=== PATIENT | male | born 1940 | race Caucasian/White ===

== ENCOUNTER 2018-04-10 09:59 | Day surgery (SDC) | payer MEDICARE, OTHER ==
[2018-04-07 08:57] VITALS: BMI 31.0
[~2018-04-10 09:59] MED LIST: LACTATED RINGERS 1,000 ML IV SCH
[2018-04-10 10:26] VITALS: RESP 16; TEMP 99.3
[2018-04-10] MEDS ORDERED: LIDOCAINE 1% 20 ML VIAL (10MG/ML) FOR IV START INTRADERMA ONE (10:29)
[2018-04-10] MEDS ORDERED: PROPOFOL 10 MG/ML 20 ML VIAL IV ONE (10:56)
[2018-04-10] MEDS ORDERED: LIDOCAINE 1% INJ 10MG/ML (20 ML MDV) ONE (10:56)
--- NOTE | 2018-04-10 10:59 | P.GSHP ---
History of Present Illness H&P Date: 04/10/18 Chief Complaint: Constipation This a 77-year-old male referred from Dr. Hari Alvarez. Patient has had change in bowel habits with increasing constipation. He presents today for colonoscopy. Past Medical History Past Medical History: Hyperlipidemia, Hypertension, Prostate Disorder, Skin Disorder Additional Past Medical History / Comment(s): BPH. PSORIASIS. History of Any Multi-Drug Resistant Organisms: None Reported Past Surgical History: Appendectomy, Joint Replacement, Orthopedic Surgery Additional Past Surgical History / Comment(s): COLONOSCOPY. TOTAL RT HIP. Arthroscopy Knee Past Anesthesia/Blood Transfusion Reactions: No Reported Reaction Smoking Status: Former smoker - Past Family History Mother Daughter(s) Family Medical History: Cancer Medications and Allergies Home Medications Medication Instructions Recorded Confirmed Type Aspirin 81 mg PO DAILY 03/26/16 04/10/18 History Multivit-Min/FA/Lycopen/Lutein 1 each PO DAILY 03/26/16 04/10/18 History [Centrum Silver Tablet] Simvastatin [Zocor] 40 mg PO HS 03/26/16 04/10/18 History amLODIPine BESYLATE [Norvasc] 20 mg PO DAILY 04/07/18 04/10/18 History Allergies Allergy/AdvReac Type Severity Reaction Status Date / Time No Known Allergies Allergy Verified 04/10/18 10:24 Surgical - Exam Vital Signs Temp Pulse Resp BP Pulse Ox 99.3 F 76 16 160/73 97 04/10/18 10:12 04/10/18 10:12 04/10/18 10:12 04/10/18 10:12 04/10/18 10:12 - General well developed - Eyes PERRL - ENT normal pinna - Neck no masses - Respiratory normal expansion - Abdomen Abdomen: soft, non tender Assessment and Plan Assessment: Constipation, we'll perform colonoscopy.
--- NOTE | 2018-04-10 11:11 | P.OP ---
Date of Procedure: 04/10/18 Preoperative Diagnosis: Constipation Postoperative Diagnosis: Diverticulosis Procedure(s) Performed: Colonoscopy Anesthesia: MAC Surgeon: Russell Peralta Pathology: none sent Condition: stable Disposition: PACU Description of Procedure: PROCEDURE: The patient was placed on the endoscopy table in the lateral position. Digital rectal examination was performed which revealed no abnormalities. The prostate was symmetrical without nodules. Flexible colonoscope was then placed in the patient's anus and passed throughout the entire colon. The ileocecal valve was visualized. The cecum, ascending, transverse, descending and sigmoid colon were normal. The rectum was normal as well. There were no masses, polyps or diverticula noted in the entire colon. SUMMARY OF FINDINGS: Normal colonoscopy.
[2018-04-10 11:25] VITALS: BP 116/72
[2018-04-10 11:49] VITALS: PULSE 53
--- NOTE | 2018-04-12 14:35 | CDI ---
Date: 04/12/18 CDS/Pool Manager Name: Carmen Miranda Phone: If any questions, call Mary Gloria Postdoctoral Scientist at [phone] Patient Name: Sukhdev Ordonez Admit Date: 04/10/18 Discharge Date: 04/10/18 ATTENTION: The [facility] Coding Staff appreciate your assistance in clarifying documentation. Please respond to the clarification below the line at the bottom and electronically sign. The [facility] Coding staff will review the response and follow-up if needed. Please note: Queries are made part of the Legal Health Record. If you have any questions, please contact the Postdoctoral Scientist. Dear Dr. Peralta, Please provide clarification as to the diagnosis of diverticulosis. On the operative report under Postoperative diagnosis is listed diverticulosis. In the body of the report the last sentence states: "There were no masses, polyps or diverticula noted in the entire colon" Please provide clarification. Thank you for your kind consideration. MTDD
== END 2018-04-10 11:58 | disposition home or self-care (01) ==
LOC: ORWHC2ENDO 09:59
PROVIDERS: ATTEND Surgery
DX: K57.30 Diverticulosis of large intestine without perforation or abscess without bleeding (principal); K59.00 Constipation, unspecified; I10 Essential (primary) hypertension; N40.0 Benign prostatic hyperplasia without lower urinary tract symptoms; L40.9 Psoriasis, unspecified; Z87.891 Personal history of nicotine dependence; Z79.82 Long term (current) use of aspirin; Z79.899 Other long term (current) drug therapy; E78.5 Hyperlipidemia, unspecified
CPT/HCPCS: 45378; J2001; J2704

== ENCOUNTER → 2021-01-06 | Outpatient (CLI) | payer MEDICARE, OTHER ==
--- NOTE | 2021-01-07 00:54 | MR ---
EXAMINATION TYPE: MR knee RT wo con DATE OF EXAM: 01/06/2021 COMPARISON: None HISTORY: Pain in right knee Multiplanar multiecho imaging of the right knee was performed without contrast. The anterior and posterior cruciate ligaments appear intact. There is a large oblique tear of the pos terior horn medial meniscus extending to the inferior surface. Anterior horn of the medial meniscus a ppears intact. There is oblique tear of the posterior horn lateral meniscus extending to the inferior surface. There is also horizontal tear of the anterior horn of the lateral meniscus. There is a mild knee joint eff usion. There is subcutaneous edema anterior to the patella and the patellar tendon. There are small a reas of increased signal in the subchondral patella consistent with minimal bone bruise. There is mil d increased signal on the medial aspect medial tibial condyle that measures 2 cm consistent with a angel ne bruise. The collateral ligaments appear intact. There is 5 mm area of subchondral edema in the ant erior aspect of the lateral femoral condyle. IMPRESSION: Knee joint effusion. There is moderate-sized tears of the anterior posterior horns of the lateral men iscus in the posterior horn of the medial meniscus. No evidence of ligamentous tear. Subcutaneous jazz ma over the anterior knee. No fracture seen. There is evidence of a moderate bone bruise involving th e anterior aspect medial tibial condyle.
== END | disposition home or self-care (01) ==
LOC: RADMRIMAIN 10:48
PROVIDERS: ATTEND Orthopaedic Surgery
DX: M23.341 Other meniscus derangements, anterior horn of lateral meniscus, right knee (principal); M23.351 Other meniscus derangements, posterior horn of lateral meniscus, right knee; M23.321 Other meniscus derangements, posterior horn of medial meniscus, right knee; S80.11XA Contusion of right lower leg, initial encounter

== ENCOUNTER → 2021-01-15 | Outpatient (CLI) | payer MEDICARE, OTHER ==
[2021-01-15 11:26] LABS: Basophils % (A) 1 %; Eosinophils # (A) 0.2 k/uL (0-0.7); Eosinophils % (A) 4 %; HCT 33.4 % (39.0-53.0); HGB 11.4 gm/dL (13.0-17.5); Lymphocytes # (A) 0.9 k/uL (1.0-4.8); Lymphocytes % (A) 15 %; MCHC 34.2 g/dL (31.0-37.0); MCV 93.7 fL (80.0-100.0); Mean Platelet Volume 6.7; Monocytes # (A) 0.3 k/uL (0-1.0); Monocytes % (A) 5 %; Neutrophils # (A) 4.8 k/uL (1.3-7.7); Neutrophils % (A) 76 %; Platelet Count 201 k/uL (150-450); RBC 3.56 m/uL (4.30-5.90); RDW 12.7 % (11.5-15.5); WBC 6.4 k/uL (3.8-10.6)
[2021-01-15 11:33] LABS: Potassium 5.1 mmol/L (3.5-5.1)
== END | disposition home or self-care (01) ==
LOC: LABPAT 10:36
PROVIDERS: ATTEND Orthopaedic Surgery
DX: Z01.818 Encounter for other preprocedural examination (principal); M23.91 Unspecified internal derangement of right knee; I48.91 Unspecified atrial fibrillation; I44.4 Left anterior fascicular block; I25.2 Old myocardial infarction; R94.31 Abnormal electrocardiogram [ECG] [EKG]
CPT/HCPCS: 80051; 85025; 93005

== ENCOUNTER 2021-04-26 07:45 | Emergency (ER) | payer MEDICARE, OTHER ==
--- NOTE | 2021-04-26 07:58 | ED ---
Dizziness HPI - General Stated Complaint: dizziness Time Seen by Provider: 04/26/21 07:45 Source: patient, EMS, RN notes reviewed Mode of arrival: EMS Limitations: no limitations - History of Present Illness Initial Comments: 80-year-old male history of atrial fibrillation and hypertension who woke up this morning and developed dizziness with head movement. He states he walked to the bathroom and felt as if he was off balance. No headache dizziness otherwise earlier in the evening when he got up 3 times without any problems. No recent illnesses no head trauma. No sore throat no plugged up ears no prior episodes. He denies any weakness to his arms or legs any other complaints or modifying factors he is on [employer] [place] Complaint: dizziness - Related Data Home Medications Medication Instructions Recorded Confirmed Aspirin 81 mg PO DAILY 03/26/16 01/19/21 Simvastatin [Zocor] 40 mg PO HS 03/26/16 01/19/21 amLODIPine BESYLATE [Norvasc] 20 mg PO DAILY 04/07/18 01/19/21 Tamsulosin [Flomax] 0.4 mg PO DAILY 01/19/21 01/19/21 Previous Rx's Medication Instructions Recorded Meclizine [Antivert] 25 mg PO TID #20 tab 04/26/21 Allergies Allergy/AdvReac Type Severity Reaction Status Date / Time No Known Allergies Allergy Verified 04/26/21 07:55 Review of Systems ROS Statement: Those systems with pertinent positive or pertinent negative responses have been documented in the HPI. ROS Other: All systems not noted in ROS Statement are negative. Past Medical History Past Medical History: Atrial Fibrillation, Hyperlipidemia, Hypertension, Osteoarthritis (OA), Prostate Disorder, Skin Disorder Additional Past Medical History / Comment(s): BPH. PSORIASIS. History of Any Multi-Drug Resistant Organisms: None Reported Past Surgical History: Appendectomy, Joint Replacement, Orthopedic Surgery Additional Past Surgical History / Comment(s): COLONOSCOPY. TOTAL RT HIP. Arthroscopy left Knee Past Anesthesia/Blood Transfusion Reactions: No Reported Reaction Past Psychological History: No Psychological Hx Reported Smoking Status: Former smoker Past Alcohol Use History: None Reported Past Drug Use History: None Reported - Past Family History Mother Daughter(s) Family Medical History: Cancer Additional Family Medical History / Comment(s): ovarian cancer Father Family Medical History: Cancer General Exam - General Exam Comments Initial Comments: This a well-developed well-nourished awake alert oriented times 3 male Limitations: no limitations General appearance: alert, in no apparent distress Head exam: Present: atraumatic, normocephalic, normal inspection Eye exam: Present: normal appearance, PERRL, EOMI. Absent: scleral icterus, conjunctival injection, periorbital swelling ENT exam: Present: normal exam, mucous membranes moist Neck exam: Present: normal inspection, full ROM, other. Absent: tenderness, meningismus, lymphadenopathy Respiratory exam: Present: normal lung sounds bilaterally. Absent: respiratory distress, wheezes, rales, rhonchi, stridor Cardiovascular Exam: Present: irregular rhythm. Absent: systolic murmur, diastolic murmur, rubs, gallop, clicks GI/Abdominal exam: Present: soft, normal bowel sounds. Absent: distended, tenderness, guarding, rebound, rigid, bruit, pulsatile mass Extremities exam: Present: normal inspection, full ROM, normal capillary refill. Absent: tenderness, pedal edema, joint swelling, calf tenderness Back exam: Present: normal inspection Neurological exam: Present: alert, oriented X3, CN II-XII intact Psychiatric exam: Present: normal affect, normal mood Skin exam: Present: warm, dry, intact, normal color. Absent: rash Course Vital Signs 04/26/21 09:55 Pulse Rate 68 Respiratory 18 Rate Blood Pressure 172/75 O2 Sat by Pulse 98 Oximetry - Reevaluation(s) Reevaluation #1: 04/26/21 10:08 Reevaluation patient finds he is less dizzy was earlier he saw much improved no other symptoms. Medical Decision Making - Medical Decision Making I did have a long discussion with the patient family members regarding the findings the presentation is consistent with benign positional vertigo. Reevaluation patient is able ably without difficulty he feels 90% better already after taking Antivert. We did have a long discussion regarding return parameters. He will follow-up with his doctor or return if needed. He was offered admission he would rather go home at this time. Additionally the patient was noted have elevated blood pressure he did not have any fluids this morning didn't take his medications this morning. Daily use home. - Lab Data Result diagrams: 04/26/21 07:56 04/26/21 07:56 Lab Results 04/26/21 04/26/21 04/26/21 Range/Units 07:56 07:56 07:56 WBC 5.5 (3.8-10.6) k/uL RBC 3.66 L (4.30-5.90) m/uL Hgb 11.7 L (13.0-17.5) gm/dL Hct 34.5 L (39.0-53.0) % MCV 94.2 (80.0-100.0) fL MCH 32.1 (25.0-35.0) pg MCHC 34.1 (31.0-37.0) g/dL RDW 12.1 (11.5-15.5) % Plt Count 230 (150-450) k/uL MPV 7.1 Neutrophils % 64 % Lymphocytes % 20 % Monocytes % 7 % Eosinophils % 6 % Basophils % 1 % Neutrophils # 3.5 (1.3-7.7) k/uL Lymphocytes # 1.1 (1.0-4.8) k/uL Monocytes # 0.4 (0-1.0) k/uL Eosinophils # 0.3 (0-0.7) k/uL Basophils # 0.1 (0-0.2) k/uL Sodium 139 (137-145) mmol/L Potassium 4.5 (3.5-5.1) mmol/L Chloride 108 H (98-107) mmol/L Carbon Dioxide 21 L (22-30) mmol/L Anion Gap 10 mmol/L BUN 41 H (9-20) mg/dL Creatinine 2.18 H (0.66-1.25) mg/dL Est GFR (CKD-EPI)AfAm 32 (>60 ml/min/1.73 sqM) Est GFR (CKD-EPI)NonAf 28 (>60 ml/min/1.73 sqM) Glucose 106 H (74-99) mg/dL Calcium 9.6 (8.4-10.2) mg/dL Magnesium 2.0 (1.6-2.3) mg/dL Total Bilirubin 0.6 (0.2-1.3) mg/dL AST 22 (17-59) U/L ALT 13 (4-49) U/L Alkaline Phosphatase 105 (38-126) U/L Creatine Kinase 170 (55-170) U/L Troponin I (0.000-0.034) ng/mL Total Protein 7.0 (6.3-8.2) g/dL Albumin 4.1 (3.5-5.0) g/dL Urine Color Light Yellow Urine Appearance Clear (Clear) Urine pH 6.5 (5.0-8.0) Ur Specific [place] 1.013 (1.001-1.035) Urine Protein Negative (Negative) Urine Glucose (UA) Negative (Negative) Urine Ketones Negative (Negative) Urine Blood Negative (Negative) Urine Nitrite Negative (Negative) Urine Bilirubin Negative (Negative) Urine Urobilinogen <2.0 (<2.0) mg/dL Ur Leukocyte Esterase Negative (Negative) 04/26/21 Range/Units 07:56 WBC (3.8-10.6) k/uL RBC (4.30-5.90) m/uL Hgb (13.0-17.5) gm/dL Hct (39.0-53.0) % MCV (80.0-100.0) fL MCH (25.0-35.0) pg MCHC (31.0-37.0) g/dL RDW (11.5-15.5) % Plt Count (150-450) k/uL MPV Neutrophils % % Lymphocytes % % Monocytes % % Eosinophils % % Basophils % % Neutrophils # (1.3-7.7) k/uL Lymphocytes # (1.0-4.8) k/uL Monocytes # (0-1.0) k/uL Eosinophils # (0-0.7) k/uL Basophils # (0-0.2) k/uL Sodium (137-145) mmol/L Potassium (3.5-5.1) mmol/L Chloride (98-107) mmol/L Carbon Dioxide (22-30) mmol/L Anion Gap mmol/L BUN (9-20) mg/dL Creatinine (0.66-1.25) mg/dL Est GFR (CKD-EPI)AfAm (>60 ml/min/1.73 sqM) Est GFR (CKD-EPI)NonAf (>60 ml/min/1.73 sqM) Glucose (74-99) mg/dL Calcium (8.4-10.2) mg/dL Magnesium (1.6-2.3) mg/dL Total Bilirubin (0.2-1.3) mg/dL AST (17-59) U/L ALT (4-49) U/L Alkaline Phosphatase (38-126) U/L Creatine Kinase (55-170) U/L Troponin I <0.012 (0.000-0.034) ng/mL Total Protein (6.3-8.2) g/dL Albumin (3.5-5.0) g/dL Urine Color Urine Appearance (Clear) Urine pH (5.0-8.0) Ur Specific [place] (1.001-1.035) Urine Protein (Negative) Urine Glucose (UA) (Negative) Urine Ketones (Negative) Urine Blood (Negative) Urine Nitrite (Negative) Urine Bilirubin (Negative) Urine Urobilinogen (<2.0) mg/dL Ur Leukocyte Esterase (Negative) - EKG Data -: EKG Interpreted by Me EKG Comments: Neutrophils and ablation rate of 78 QRS 70 QT since QTC 406/462 evidence of left axis deviation Disposition Clinical Impression: Benign paroxysmal positional vertigo, Chronic atrial fibrillation, Hypertensi on, Chronic renal insufficiency Disposition: HOME SELF-CARE Condition: Good Instructions (If sedation given, give patient instructions): Dizziness (ED) Prescriptions: Meclizine [Antivert] 25 mg PO TID #20 tab Is patient prescribed a controlled substance at d/c from ED?: No Referrals: Hari Fajardo DO [Primary Care Provider] - 1-2 days
[2021-04-26] MEDS ORDERED: MECLIZINE 12.5 MG TAB PO STA (08:16)
[2021-04-26 08:21] LABS: Albumin 4.1 g/dL (3.5-5.0); Potassium 4.5 mmol/L (3.5-5.1)
[2021-04-26 08:22] LABS: Calcium 9.6 mg/dL (8.4-10.2); Total Bilirubin 0.6 mg/dL (0.2-1.3)
[2021-04-26 08:28] LABS: Basophils # (A) 0.1 k/uL (0-0.2); Basophils % (A) 1 %; Eosinophils # (A) 0.3 k/uL (0-0.7); Eosinophils % (A) 6 %; HCT 34.5 % (39.0-53.0); HGB 11.7 gm/dL (13.0-17.5); Lymphocytes # (A) 1.1 k/uL (1.0-4.8); Lymphocytes % (A) 20 %; MCH 32.1 pg (25.0-35.0); MCHC 34.1 g/dL (31.0-37.0); MCV 94.2 fL (80.0-100.0); Mean Platelet Volume 7.1; Monocytes # (A) 0.4 k/uL (0-1.0); Monocytes % (A) 7 %; Neutrophils # (A) 3.5 k/uL (1.3-7.7); Neutrophils % (A) 64 %; Platelet Count 230 k/uL (150-450); RBC 3.66 m/uL (4.30-5.90); RDW 12.1 % (11.5-15.5); WBC 5.5 k/uL (3.8-10.6)
--- NOTE | 2021-04-26 08:42 | XR ---
EXAMINATION TYPE: XR chest 2V DATE OF EXAM: 04/26/2021 COMPARISON: NONE HISTORY: 80 years Male. STUDY INDICATION GIVEN: Atrial fibrillation new-onset dizziness . TECHNIQUE: Frontal and lateral chest radiographs IMPRESSION: There is mild cardiomegaly and mild interstitial edema. No focal airspace disease, pneumothorax or pl eural effusion. Minimal bibasilar subsegmental atelectatic changes are appreciated. No acute osseous abnormality. Bilateral glenohumeral and AC joint left greater than right osteoarthrosis.
--- NOTE | 2021-04-26 08:52 | CT ---
EXAMINATION TYPE: CT brain wo con DATE OF EXAM: 04/26/2021 COMPARISON: None HISTORY: Dizziness stated today TECHNIQUE: CT scan of the head without contrast CT DLP: 1100.4 mGycm Automated exposure control for dose reduction was used. FINDINGS: No acute intracranial hemorrhage, midline shift or mass effect seen. The friend-white matter differenti ation is preserved. The CSF spaces and ventricles are prominent in keeping with mild brain volume loss. There is patchy l ow-attenuation in the deep white matter and periventricular regions likely on the basis of chronic mi crovascular ischemic changes there are scattered low attenuating foci in the bilateral basal ganglia and right caudate nucleus greater than left likely on the basis of lacunar infarcts. No acute orbital , osseous or soft tissue abnormality. Postsurgical changes seen in both orbits. Mild bilateral left greater than right maxillary sinus mucosal sinus disease. No mastoid air cell eff usion seen. IMPRESSION: NO EVIDENCE FOR ACUTE INTRACRANIAL ABNORMALITY. PARENCHYMAL CHANGES, LIKELY CHRONIC, DESCRIBED IN BODY OF REPORT.
[2021-04-26 09:51] LABS: Appearance,Urine Clear (Clear); Bilirubin,Urine Negative (Negative); Blood,Urine Negative (Negative); Color,Urine Light Yellow; Glucose,Urine (UA) Negative (Negative); Ketones,Urine Negative (Negative); Leukocyte Esterase,Urine Negative (Negative); Nitrite,Urine Negative (Negative); PH, Urine 6.5 (5.0-8.0); Protein,Urine Negative (Negative); Specific Gravity,Urine 1.013 (1.001-1.035); Urobilinogen,Urine <2.0 mg/dL (<2.0)
[2021-04-26 10:06] VITALS: BP 172/75; PULSE 68; RESP 18
== END 2021-04-26 10:25 | disposition home or self-care (01) ==
LOC: EC 07:45
DX: H81.10 Benign paroxysmal vertigo, unspecified ear (principal); I12.9 Hypertensive chronic kidney disease with stage 1 through stage 4 chronic kidney disease, or unspecified chronic kidney disease; N18.9 Chronic kidney disease, unspecified; I48.20 Chronic atrial fibrillation, unspecified; E78.5 Hyperlipidemia, unspecified; M19.90 Unspecified osteoarthritis, unspecified site; N40.0 Benign prostatic hyperplasia without lower urinary tract symptoms; Z79.82 Long term (current) use of aspirin; Z79.899 Other long term (current) drug therapy; Z87.891 Personal history of nicotine dependence; Z90.49 Acquired absence of other specified parts of digestive tract
CPT/HCPCS: 36415; 70450; 71046; 80053; 81003; 82550; 83735; 84484; 85025; 93005; 99284

== ENCOUNTER 2021-05-07 10:48 | Day surgery (SDC) | payer MEDICARE, OTHER ==
[2021-05-05 15:37] VITALS: BMI 27.2
--- NOTE | 2021-05-06 19:32 | HP ---
HISTORY AND PHYSICAL DATE OF SURGERY: 05/07/2021 Sukhdev Ordonez is a 80-year-old gentleman seen with progressive right knee pain. We discussed options for treatment. He elected to proceed with arthroscopy. Consent was obtained. Cardiac clearance was obtained. PAST MEDICAL HISTORY: Atrial fibrillation, hypertension, hyperlipidemia. PAST SURGICAL HISTORY: Knee arthroscopy. DAILY MEDICATIONS: Amlodipine/benazepril, aspirin, simvastatin. ALLERGIES: NONE REPORTED. SOCIAL HISTORY: He denies tobacco use. PHYSICAL EVALUATION OF THE RIGHT KNEE: His range of motion is negative 2/3 to 120. Mild effusion. Tenderness, medial joint line. Positive medial Dmitry's. Positive lateral Dmitry's. Positive lateral joint line tenderness. Ligaments stable. Hip rotation without pain. Distal neurovascular exam intact. IMAGING: Right knee radiographs revealed osteoarthritic changes. MRI of right knee revealed medial and lateral meniscal tears as well as an effusion. IMPRESSION: 1. Internal derangement of right knee with medial and lateral meniscal tears. 2. Cardiovascular disease. 3. Hypertension. 4. Hyperlipidemia. PLAN: Right knee arthroscopy with partial meniscectomy and debridement. MMODL / IJN: [id number] /
[2021-05-07] MEDS ORDERED: LIDOCAINE 1% (10MG/ML) FOR IV START INTRADERMA PRN (11:11)
[2021-05-07] MEDS ORDERED: DEXAMETHASONE SOD PHOSPHATE 4 MG/ML 1 ML VIAL IV ONE (11:11)
[2021-05-07] MEDS ORDERED: ONDANSETRON 4 MG/2 ML VIAL IVP ONE (11:11)
[2021-05-07] MEDS ORDERED: MIDAZOLAM 2 MG/2 ML VIAL IV PRN (11:11)
[2021-05-07] MEDS ORDERED: HYDROmorphone 0.5 MG/0.5 ML SYRINGE IVP PRN (11:11)
[2021-05-07] MEDS: LACTATED RINGERS 1,000 ML IV SCH ×2 (11:42→12:28)
[2021-05-07] MEDS ORDERED: KETOROLAC 15 MG/ML 1 ML VIAL ONE (12:23)
[2021-05-07] MEDS ORDERED: LIDOCAINE 1% INJ 10MG/ML (20 ML MDV) ONE (12:23)
[2021-05-07] MEDS ORDERED: fentaNYL (PF) 50 MCG/ML 2 ML AMP ONE (12:23)
[2021-05-07] MEDS ORDERED: HYDROmorphone (PF) 1 MG/ML ONE (12:23)
[2021-05-07] MEDS ORDERED: SUCCINYLCHOLINE CHLORIDE 100 MG/5 ML SYR IV ONE (12:23)
[2021-05-07] MEDS ORDERED: MIDAZOLAM 2 MG/2 ML VIAL ONE (12:23)
[2021-05-07] MEDS ORDERED: PROPOFOL 10 MG/ML 20 ML VIAL IV ONE (12:23)
[2021-05-07] MEDS ORDERED: BUPIVACAINE (PF) 0.25% 30 ML VIAL INTRAARTIC ONE ×2 (12:54→13:15)
--- NOTE | 2021-05-07 13:27 | P.OP ---
Date of Procedure: 05/07/21 Preoperative Diagnosis: Internal derangement right knee Postoperative Diagnosis: 1. Medial meniscal tear right knee 2. Lateral meniscal tear right knee 3. 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 Reactive synovitis medial, lateral and suprapatellar compartments right knee Procedure(s) Performed: 1. Arthroscopic partial medial and lateral meniscectomy right knee 2. Arthroscopic chondroplasty lateral femoral condyle right knee 3. Arthroscopic partial synovectomy medial, lateral and suprapatellar compartments right knee Anesthesia: MALIHAA, local Surgeon: Roscoe Parr Estimated Blood Loss (ml): 7 Pathology: none sent Condition: stable Disposition: PACU Indications for Procedure: 80-year-old patient seen with progressive right knee pain. After treatment options were discussed, he elected to proceed with arthroscopy. Operative Findings: See description of procedure Description of Procedure: Patient was taken to the operative suite. Patient underwent a general anesthetic by the department of anesthesia. Patient was given preoperative antibiotics. The right lower extremity was placed in a well-padded arthroscopic leg oswald. The right leg was prepped and draped in the normal sterile orthop edic fashion. A lateral parapatellar and suprapatellar incision was made. Trochars were inserted. Arthroscopy was initiated. Suprapatellar pouch revealed diffuse thick reactive synovitis. The patellofemoral joint appeared to articulate congruently. There was grade 2 chondromalacia of the patella with no significant osteochondral tears present. The scope was guided into the medial gutter. No loose bodies or plica were identified. The scope was then guided into the medial compartment. A medial parapatellar incision was made. Trocar inserted followed by probe. There was a radial complex type tear posterior horn medial meniscus. There were grade 2 chondromalacia changes medial femoral condyle without osteochondral tears. There was thick reactive synovitis anteriorly. I performed a partial medial meniscectomy getting down to stable meniscal tissue. I performed a partial synovectomy decompressing the thick reactive synovitis. The residual meniscus was probed and was found to be stable. There was good decompression of synovitis. Scope and probe were then guided into the intercondylar notch. Cruciates were identified, probed and found to be stable. The scope and probe were then guided into lateral compartment. There was a complex tear involving the posterior horn and midbody lateral meniscus. There were grade 2/3 chondromalacia changes of the lateral femoral condyle with diffuse osteochondral flap tears present. There was thick reactive synovitis anteriorly. I performed a partial lateral meniscectomy getting down to stable meniscal tissue. I performed a chondroplasty of the medial femoral condyle getting down to stable osteochondral tissue. I performed a partial synovectomy decompressing thick reactive synovitis. The residual meniscus was stable. There was good decompression of synovitis. The residual osteochondral surface remained stable although there was probably more like grade 3 chondral malacia of the medial femoral condyle this point. The scope was in guided back into the suprapatellar compartment. I introduced a motorized shaver into the suprapatellar compartment. I debrided some piecemeal fragments of meniscus I encountered. I performed a partial synovectomy. Shaver was removed. There was good decompression of the synovitis. I took one more look on the entire knee, no residual debris. Instruments were now removed from the joint. The joint was infiltrated with .25% Marcaine. Steri-Strips were applied to the portal sites. Sterile dressings were applied. The patient was placed into a CLAYTON hose. No tourniquet was utilized. The patient was awakened, transferred to a bed and taken to recovery stable satisfactory condition.
[2021-05-07 13:37] VITALS: TEMP 96.9
[2021-05-07 14:49] VITALS: BP 162/92; PULSE 86; RESP 16
== END 2021-05-07 15:18 | disposition home or self-care (01) ==
LOC: OR 10:48
PROVIDERS: ATTEND Orthopaedic Surgery
DX: M23.203 Derangement of unspecified medial meniscus due to old tear or injury, right knee (principal); M23.200 Derangement of unspecified lateral meniscus due to old tear or injury, right knee; M22.41 Chondromalacia patellae, right knee; M65.861 Other synovitis and tenosynovitis, right lower leg; I48.91 Unspecified atrial fibrillation; I25.10 Atherosclerotic heart disease of native coronary artery without angina pectoris; I10 Essential (primary) hypertension; E78.5 Hyperlipidemia, unspecified; Z98.890 Other specified postprocedural states; Z96.642 Presence of left artificial hip joint; Z79.82 Long term (current) use of aspirin; Z79.899 Other long term (current) drug therapy; Z79.01 Long term (current) use of anticoagulants
CPT/HCPCS: 29880; J2250; J1100; J0690; J2405; J2001; J3010; J1170; J1885; J0330; J2704

== ENCOUNTER → 2021-10-29 | Outpatient (CLI) | payer MEDICARE | END | disposition home or self-care (01) | LOC: LABPAT 13:14 | PROVIDERS: ATTEND Orthopaedic Surgery | DX: Z01.812 Encounter for preprocedural laboratory examination (principal); Z22.322 Carrier or suspected carrier of Methicillin resistant Staphylococcus aureus; M17.11 Unilateral primary osteoarthritis, right knee | CPT/HCPCS: 87070 ==

== ENCOUNTER 2021-11-09 10:59 | Day surgery (SDC) | payer MEDICARE, OTHER ==
[2021-11-06 09:13] VITALS: BMI 27.2
--- NOTE | 2021-11-08 12:33 | HP ---
HISTORY AND PHYSICAL DATE OF SURGERY: 11/09/2021 Sukhdev Ordonez is an 81-year-old patient seen with symptomatic right knee osteoarthritis. We discussed options for treatment. He elected to proceed with right total knee arthroplasty. Consent regarding the procedure was obtained. Preoperative medical clearance was provided by Dr. Hari Fajardo. Preoperative cardiac clearance was provided by Dr. Shine. PAST MEDICAL HISTORY: Cardiovascular disease, hypertension, hyperlipidemia, atrial fibrillation. PAST SURGICAL HISTORY: Knee arthroscopy. DAILY MEDICATIONS: Amlodipine, simvastatin, Eliquis, tamsulosin. ALLERGIES: NONE. SOCIAL HISTORY: He denies tobacco use. PHYSICAL EVALUATION OF THE RIGHT KNEE: His range of motion is negative 7 to 110. Tenderness along the medial joint line. There is crepitus along the medial and patellofemoral compartments with range of motion. There is pain with patellofemoral compression. Ligaments stable. Hip rotation without pain. Distal neurovascular exam is intact. Radiographs of the right knee reveal severe osteoarthritic changes. IMPRESSION: 1. Right knee osteoarthritis. 2. Hypertension. 3. Hyperlipidemia. 4. Atrial fibrillation. PLAN: Right total knee arthroplasty. MMODL / IJN: [id number] /
[~2021-11-09 10:59] MED LIST changes: +ACETAMINOPHEN TAB 500 MG TAB PO PRN; +DEXAMETHASONE SOD PHOSPHATE 4 MG/ML 1 ML VIAL IV ONE; +HYDROmorphone 0.5 MG/0.5 ML SYRINGE IVP PRN; +LIDOCAINE 1% (10MG/ML) FOR IV START INTRADERMA PRN; +MELOXICAM 7.5 MG TAB PO PRN; +MIDAZOLAM 2 MG/2 ML VIAL IV PRN; +ONDANSETRON 4 MG/2 ML VIAL IVP ONE; +TRANEXAMIC ACID IN NACL,ISO-OS 1,000 MG in SALINE 1 100ML.BAG IVPB PRN
[2021-11-09] MEDS ORDERED: MIDAZOLAM 2 MG/2 ML VIAL IVP ONE (12:02)
[2021-11-09] MEDS ORDERED: fentaNYL (PF) 50 MCG/ML 2 ML AMP IVP ONE (12:02)
[2021-11-09] MEDS ORDERED: PROPOFOL 10 MG/ML 20 ML VIAL IV ONE (12:49)
[2021-11-09] MEDS ORDERED: ROPIVACAINE 5 MG/ML 30 ML VIAL ONE (12:49)
[2021-11-09] MEDS ORDERED: fentaNYL (PF) 50 MCG/ML 2 ML AMP ONE (12:49)
[2021-11-09] MEDS ORDERED: TRANEXAMIC ACID IN NACL,ISO-OS 1,000 MG/100 ML BAG ONE (12:49)
[2021-11-09] MEDS ORDERED: MIDAZOLAM 2 MG/2 ML VIAL ONE (12:49)
[2021-11-09] MEDS ORDERED: ceFAZolin 1,000 MG in SODIUM CHLORIDE 0.9% 1,000 ML IRRIGATION ONE (13:13)
--- NOTE | 2021-11-09 13:14 | P.ANPRN ---
Procedure Note - Anesthesia - Nerve Block Performed Right Adductor Canal Infusion Time Out Performed: Yes (1201) Date of Procedure: 11/09/21 Procedure Start Time: 12:01 Procedure Stop Time: 12:12 Location of Patient: PreOp Indication: Dx/Pain Location (Right Knee), Requested by Surgeon Specifically requested for management of pain by DrFranklin: Roscoe Parr Sedation Type: Sedate with meaningful contact maintained Preparation: Sterile Prep, Sterile Dressing Position: Supine Catheter: Indwelling Needle Types: Pajunk Needle Gauge: 18 Ultrasound used to visualize needle placement: Yes Ultrasound used to observe medication spread: Yes Injectate: 0.5% Ropivacaine (see comment for volume) (20 cc) Blood Aspirated: No Pain Paresthesia on Injection Noted: No Resistance on Injection: Normal Image Stored and Saved: Yes Events: Uneventful and Well Tolerated Right iPack Single Time Out Performed: Yes Date of Procedure: 11/09/21 Procedure Start Time: 12:13 Procedure Stop Time: 12:22 Location of Patient: PreOp Indication: Acute Post-Operative Pain, Dx/Pain Location (Right Knee), Requested by Surgeon Specifically requested for management of pain by DrFranklin: Roscoe Parr Sedation Type: Sedate with meaningful contact maintained Preparation: Sterile Prep Position: Left Lateral Catheter: None Needle Types: Pajunk Needle Gauge: 21 Ultrasound used to visualize needle placement: Yes Ultrasound used to observe medication spread: Yes Injectate: 0.5% Ropivacaine (see comment for volume) (20 cc) Blood Aspirated: No Pain Paresthesia on Injection Noted: No Resistance on Injection: Normal Image Stored and Saved: Yes Events: Uneventful and Well Tolerated
[2021-11-09] MEDS ORDERED: HYDROmorphone 0.5 MG/0.5 ML SYRINGE IVP PRN ×3 (14:20)
[2021-11-09] MEDS ORDERED: NALOXONE 0.4 MG/ML 1 ML VIAL IV PRN (14:20)
[2021-11-09] MEDS ORDERED: HYDROcodone/APAP 5-325MG 1 EACH TAB PO PRN ×2 (14:20)
[2021-11-09] MEDS ORDERED: ONDANSETRON 4 MG/2 ML VIAL IVP PRN (14:20)
--- NOTE | 2021-11-09 14:20 | P.OP ---
Date of Procedure: 11/09/21 Preoperative Diagnosis: Right knee osteoarthritis Postoperative Diagnosis: Right knee osteoarthritis Procedure(s) Performed: Right total knee arthroplasty Implants: 1. Depuy attune size 7 right cruciate-retaining cemented femur 2. Depuy attune size 7 fixed-bearing cemented tibial baseplate 3. Depuy attune size 7 fixed-bearing cruciate retaining millimeter polyethylene tibial insert 4. Depuy attune 38 mm all polyethylene cemented patella Anesthesia: regional (Adductor canal catheter, Ipack lock), spinal Surgeon: Roscoe Parr Canvas Baster #1: Manuel Barber Estimated Blood Loss (ml): 45 Pathology: other (Bone) Condition: stable Disposition: PACU Indications for Procedure: 81-year-old patient seen with symptomatic right knee osteoarthritis. After treatment options were discussed, he elected to proceed with total knee arthroplasty. Operative Findings: See description of procedure Description of Procedure: Patient was taken to the operative suite after having an adductor canal catheter placed by the department of anesthesia. Patient underwent a spinal anesthetic by the department of anesthesia. Patient was given preoperative IV intake antibiotics and TXA. A well-padded tourniquet was placed about the right lower extremity. The lower extremity was then prepped and draped in the normal sterile orthopedic fashion. The extremity was elevated, a tourniquet was insufflated to 300. A standard anterior incision was made sharply through skin. Dissection was taken down through the subcutaneous soft tissues down to the extensor mechanism. A medial arthrotomy was performed, patella was everted and knee was flexed. There was advanced osteoarthritis noted. I introduced my distal intramedullary femoral drill. I then introduced the distal femoral cutting jig. Rodolfo ELLIOTT secured the cutting jig with 2 pins. I held retractors in position while Rodolfo ELLIOTT performed the distal femoral resection through the guide area we now removed her distal femoral cutting guide. We now placed our 4-in-1 femoral cutting block and positioned and it was secured with 2 pins by Rodolfo ELLIOTT while I held the block in position. The distal femoral finishing was now completed. A proximal tibial cutting guide was positioned. I held the guide in the appropriate position with both hands well Rodolfo ELLIOTT inserted stabilizing pins into the guide. Proximal tibial cut was made. We now placed a trial femoral component into position, along with an appropriate size tibial tray and insert. We now took the knee through range of motion and had full extension good flexion and good overall soft tissue balance noted. The patella was everted and stabilized with 2 towel clips held by Rodolfo ELLIOTT while I performed a flush with patellar quad tendon utilizing a fresh sawblade. We templated the patella, appropriate drill holes were made. An appropriate trial patella was positioned, knee was taken through full range of motion with the patella tracking very nicely. The trial patella was removed. Drill holes were made through the femoral component. All trial components were removed after marking off the appropriate rotation of the tibia. Retractors were now positioned along the proximal tibia. An appropriate keel punch was made with the appropriate size tibial guide by myself on Rodolfo ELLIOTT assisted by holding retractors. At this point appropriate size implants were chosen and opened. The joint was irrigated copiously with pulse lavage mechanical irrigation. The posterior capsule was infiltrated with local analgesic. The wo und was irrigated with pulse lavage mechanical irrigation. We mixed antibiotic methylmethacrylate. We placed the knee into flexion. We placed multiple retractors assisted by Rodolfo ELLIOTT to expose the proximal tibia. Once the methyl methacrylate was ready, the tibial component was cemented into place removing any excess methylmethacrylate form by both myself and Rodolfo ELLIOTT. The femoral component was cemented into place removing the removing any excess methylmethacrylate performed by both myself and Rodolfo ELLIOTT. We then inserted the appropriate size polyethylene tibial insert. We made sure that it was locked into position. We took the knee into full extension, and then back in a flexion making sure we had removed any excess methylmethacrylate. The patellar component was then cemented down and secured with clamp. Excess methylmethacrylate removed. We kept the knee in full extension, patellar clamp in position until methylmethacrylate had hardened. Once it had hardened the patellar clamp was removed. The knee was taken through full range of motion. The patella tracked nicely. There was good soft tissue balancing. The tourniquet was now released. Additional hemostasis was achieved via electrocautery. A second gram of TXA was given. The wound again was irrigated with pulse lavage mechanical irrigation. The superficial soft tissues were infiltrated local analgesic. The extensor mechanism was repaired with Ethibond. We checked the repair with range of motion and it was stable. The subcutaneous soft tissues were repaired with Vicryl in layers. The skin was approximated with pernio/Dermabond. Sterile dressings were applied followed by loose web roll and David bandage. The patient was transferred to a bed, and taken to recovery in stable and satisfactory condition. Rodolfo ELLIOTT assisted with this complex procedure.
[2021-11-09] MEDS ORDERED: SODIUM CHLORIDE 0.9% 1,000 ML IV SCH (14:30)
[2021-11-09] MEDS ORDERED: LACTATED RINGERS 1,000 ML IV ONE ×3 (14:39)
[2021-11-09] MEDS ORDERED: ROPIVACAINE 0.2%-NS ON-Q PUMP 2 MG/ML EACH MISCELLANE ONE ×2 (14:47)
[2021-11-09] MEDS ORDERED: ROPIVACAINE 0.2%-NS ON-Q PUMP 1,090 MG, EMPTY PAIN BALL 1 EACH MISCELLANE PRN (14:52)
--- NOTE | 2021-11-09 15:19 | XR ---
EXAMINATION TYPE: XR knee limited RT DATE OF EXAM: 11/09/2021 COMPARISON: NONE TECHNIQUE: Two views submitted HISTORY: Post op FINDINGS: There is a prosthetic knee in near anatomic alignment. There is soft tissue edema and emphysema. IMPRESSION: 1. Postoperative change. Appears in near-anatomic alignment
[2021-11-09] MEDS ORDERED: SENNOSIDES-DOCUSATE SODIUM 1 EACH TAB PO SCH (21:00)
--- NOTE | 2021-11-10 07:40 | P.PN ---
Progress Note - Text Progress Note Date: 11/10/21 Postoperative day # 1 status post total knee arthroplasty, on adductor canal perineural catheter placed for postoperative analgesia. Ropivacaine 0.2% 8 mL per hour through ON-Q pump continuous infusion. Pain is well controlled. On visual analog scale 2/10 Patient is taking PRN oral pain medications. Catheter site: Looks Ok. There is no erythema or tenderness. Continue with the current pain management plan and will follow.
[2021-11-10] MEDS ORDERED: ENOXAPARIN 30 MG/0.3 ML SYRINGE SQ SCH (09:00)
[2021-11-10 09:15] LABS: Basophils # (A) 0.02 X 10*3/uL (0.00-0.10); Basophils % (A) 0.2 %; Eosinophils # (A) 0.01 X 10*3/uL (0.04-0.35); Eosinophils % (A) 0.1 %; HCT 30.7 % (39.6-50.0); Lymphocytes # (A) 0.54 X 10*3/uL (0.90-5.00); Lymphocytes % (A) 5.3 %; MCHC 32.6 g/dL (32.0-37.0); Mean Platelet Volume 10.3 fL (9.5-12.2); Monocytes % (A) 6.8 %; NRBC Per 100 WBC 0 /100 WBCS (0.0-0.0); Neutrophils # (A) 8.91 X 10*3/uL (1.80-7.70); Neutrophils % (A) 86.6 %; Platelet Count 180 X 10*3/uL (140-440); RBC 3.23 X 10*6/uL (4.40-5.60); RDW 12.5 % (11.5-14.5); WBC 10.28 X 10*3/uL (4.50-10.00)
[2021-11-10 09:36] VITALS: BP 160/89; PULSE 80; RESP 16; TEMP 98.3
[2021-11-10] MEDS ORDERED: SODIUM BICARBONATE TAB 650 MG TAB PO SCH (10:15)
[2021-11-10] MEDS ORDERED: PANTOPRAZOLE 40 MG/10 ML VIAL IVP SCH (10:45)
--- NOTE | 2021-11-10 10:55 | P.PN ---
Subjective Progress Note Date: 11/10/21 Principal diagnosis: Status post right total knee arthroplasty Patient was evaluated today at bedside, he is actually walking in the room with a walker upon entry. He is doing very well so far, he ambulated with physical therapy, including the steps. His pain is currently controlled with his current medications. He denies any headaches, lightheadedness, chest pain, shortness of breath, abdominal discomfort, nausea vomiting, fever or chills. Objective - Vital Signs Vital signs: Vital Signs Temp 98.3 F 11/10/21 08:00 Pulse 80 11/10/21 08:00 Resp 16 11/10/21 08:00 BP 160/89 11/10/21 08:00 Pulse Ox 97 11/10/21 08:00 Intake & Output 11/09/21 11/10/21 11/10/21 18:59 06:59 18:59 Intake Total 1251 240 Output Total 45 325 Balance 1206 -85 Weight 86.6 kg 86.6 kg Intake: IV 1251 Oral 240 Output: Urine 325 Estimated Blood Loss 45 Other: Voiding Method Urinal Toilet - Exam Right lower extremity: Incision is clean, dry, and intact. The foam dressing is in good condition. There is minimal soft tissue swelling and ecchymosis surrounding the medial and lateral aspects of the incision. Calf is soft, no tenderness with palpation. Plantar flexion, dorsiflexion, EHL, FHL are intact. Sensory exam to light touch throughout the extremity is intact, dorsal pedis pulses 2+. - Labs CBC & Chem 7: 11/10/21 05:47 Labs: Abnormal Lab Results - Last 24 Hours (Table) 11/10/21 Range/Units 05:47 WBC 10.28 H (4.50-10.00) X 10*3/uL RBC 3.23 L (4.40-5.60) X 10*6/uL Hgb 10.0 L (13.0-17.0) g/dL Hct 30.7 L (39.6-50.0) % Immature Gran # 0.10 H (0.00-0.04) X 10*3/uL Neutrophils # 8.91 H (1.80-7.70) X 10*3/uL Lymphocytes # 0.54 L (0.90-5.00) X 10*3/uL Eosinophils # 0.01 L (0.04-0.35) X 10*3/uL Assessment and Plan Assessment: Postoperative day #1 status post right total knee arthroplasty Plan: Pain control, plan for discharge on Freedom 5 mg/325 mg. Discuss the use of [id number] Tylenol also GI and DVT prophylaxis, patient did receive Lovenox during his hospital stay. Patient does Eliquis at home, he'll resume it on 11/11/2021 Wound care instructions were discussed, this including icing and elevating along with showering Home health care, this including nursing and physical therapy after discharge Medical recommendations Discharge planning: Plan for discharge home today Time with Patient: Less than 30
--- NOTE | 2021-11-10 10:58 | P.DS ---
Providers Date of admission: 11/09/2021 Expected date of discharge: 11/10/21 Attending physician: Roscoe Parr Consults: 11/09/21 14:20 Consult Physician Routine Consulting Provider: Hari Fajardo Reason/Comments: Medical management Do you want consulting provider notified?: Yes Primary care physician: Hari Fajardo Hospital Course: Date of admission: 11/09/2021 Date of discharge: 11/10/2021 Admission diagnosis: Status post right total knee arthroplasty Discharge diagnosis: Same Attending physician: Dr. Parr Surgical procedures: Right total knee arthroplasty Brief history: Patient is a 81 year-old male with a history of progressive primary right knee osteoarthritis. At this point patient has failed conservative treatment measures and has opted to proceed with a elective right total knee arthroplasty. Hospital course: Details of patient's surgery can be found in operative report. Patient tolerated the procedure well and was subsequently transported to orthopedic floor. Patient's orthopeidc and medical care was provided daily. Patient had daily laboratory tests performed for evaluation of overall blood counts. Patient had daily physical therapy to include strengthening range of motion as well as education with walker ambulation. Patient was treated with Lovenox for their postoperative DVT prophylaxis during their inpatient stay. Patient was noted to have a relatively uneventful postoperative course. Patient reported satisfactory pain control with oral pain medications by postoperative day 0. Patient showed satisfactory progress with physical therapy. Patient moved steadily through the program and had no difficulty meeting the goals by postoperative day 1. Given patient's otherwise satisfactory course and having met physical therapy goals, plan is to discharge patient home on postoperative day 1. Discharge condition/disposition: Patient will be discharged home in stable condition. Discharge medications: Instructions are given on resumption of patient's normal daily medications per primary care recommendation, in addition patient will be prescribed Piedmont 5 mg/325 mg, Colace 100 mg. Discharge instructions: 1. Wound care and infection precautions, keep incision dry and covered while showering, no lotions, creams, moisturizers. No soaking, tubs, pools, hottubs. Do not scrub over the incision. 2. Weight-bear as tolerated with walker / cane until follow-up. 3. Ice and elevate when necessary. Do not exceed 20 minutes per hour with ice pack. 4. Utilize compression sleeve until seen at first follow up appointment. 5. Visiting nursing care. 6. Home physical therapy including home CPM. 7. Pain meds and anticoagulants per prescription. 8. Pain medication has potential to cause constipation. Increase oral fluid and fiber intake. Contact primary care provider if you have not had a bowel movement within 48 hours after discharge 9. No anti-inflammatory medication until discussed at first post operative v isit, this including Motrin, Aleve, Mobic, Diclofenac. 10. Follow up in office at 2 weeks postop with Rodolfo Barber PA-C/Ashwin Morrison 11. Follow up with your primary care doctor 7-10 days after discharge. 12. Contact [facility] with any questions, . Procedures: Right total knee arthroplasty Patient Condition at Discharge: Good Plan - Discharge Summary Discharge Rx Participant: No New Discharge Prescriptions: New Docusate [Colace] 100 mg PO DAILY #30 capsule HYDROcodone/APAP 5-325MG [Piedmont 5-325] 1 tab PO Q4HR PRN #42 tab PRN Reason: Pain No Action Simvastatin [Zocor] 40 mg PO DAILY hydrALAZINE HCL [Apresoline] 50 mg PO TID traMADol HCl [Ultram] 50 mg PO Q6H PRN #12 tab PRN Reason: Pain Tamsulosin [Flomax] 0.4 mg PO HS Apixaban [Eliquis] 2.5 mg PO BID Sodium Bicarbonate Tab 650 mg PO QAM Discharge Medication List Simvastatin [Zocor] 40 mg PO DAILY 03/26/16 [History] Tamsulosin [Flomax] 0.4 mg PO HS 01/19/21 [History] Apixaban [Eliquis] 2.5 mg PO BID 05/05/21 [History] Sodium Bicarbonate Tab 650 mg PO QAM 05/05/21 [History] hydrALAZINE HCL [Apresoline] 50 mg PO TID 05/05/21 [History] traMADol HCl [Ultram] 50 mg PO Q6H PRN #12 tab 05/07/21 [Rx] Docusate [Colace] 100 mg PO DAILY #30 capsule 11/10/21 [Rx] HYDROcodone/APAP 5-325MG [Piedmont 5-325] 1 tab PO Q4HR PRN #42 tab 11/10/21 [Rx] Follow up Appointment(s)/Referral(s): [facility], [NON-STAFF] - As Needed ([facility] will call you to schedule your in home nursing and physical therapy visits. ) Manuel Barber, PAC [PHYSICIAN FLOOR COVERING LAYER] - 2 Weeks Patient Instructions/Handouts: Knee Replacement (DC) Activity/Diet/Wound Care/Special Instructions: Orthopedic Discharge Instructions: 1. Wound care and infection precautions, keep incision dry and covered while showering, no lotions, creams, moisturizers. No soaking, pools, hot tubs. Do not scrub over incision. 2. Weight-bear as tolerated with walker / cane until follow-up. 3. Ice and elevate when necessary. Do not exceed 20 minutes per hour with ice pack. 4. Utilize compression sleeve until seen at first follow up appointment. 5. Pain meds and anticoagulants per prescription. 6. Pain medication has potential to cause constipation. Increase oral fluid and fiber intake. Contact primary care provider if you have not had a bowel movement within 48 hours after discharge. 7. No anti-inflammatory medication until discussed at first post operative visit, this including Motrin, Aleve, Mobic, Diclofenac. 8. Follow up in office at 2 weeks postop with Rodolfo Barber PA-C / Ashwin Huggins PA-C 9. Follow up with your primary care doctor 7-10 days after discharge. 10. Contact [facility] with any questions, . Keep incision clean, dry, intact. While showering, cover silver foam dressing with Saran wrap. Silver foam dressing may be removed in 7 days, 11/16/2021 Medications: Discharge Disposition: HOME WITH HOME HEALTH SERVICES
--- NOTE | 2021-11-10 11:05 | P.CONS ---
History of Present Illness - Reason for Consult Consult date: 11/10/21 Medical management BPH,hypertension, atrial fibrillation Requesting physician: Roscoe Parr - Chief Complaint Right knee osteoarthritis status post right total knee arthroplasty - History of Present Illness This is an 81-year-old with past medical history of atrial fibrillation-on home anticoagulation of Eliquis, hyperlipidemia, hypertension, osteoarthritis, prostate disorder, BPH, former nicotine dependence and multiple other medical issues, status post right total knee arthroplasty secondary to right knee osteoarthritis. Tolerated procedure well. Good diet intake, consuming 50% with no nausea vomiting or diarrhea. Passing flatus. Pain controlled. Eagerly awaiting PT. Denies chest pain, palpitations or shortness of breath. Denies lightheadedness, dizziness or focal deficits. Review of Systems Constitutional: Denied any fatigue denied any fever. Cardio vascular: denied any chest pain, palpitations Gastrointestinal denied any nausea vomiting Pulmonary: Denied any shortness of breath cough Neurologic denied any new focal deficits ROS Statement: Those systems with pertinent positive or pertinent negative responses have been documented in the HPI. ROS Other: All systems not noted in ROS Statement are negative. Past Medical History Past Medical History: Atrial Fibrillation, Hyperlipidemia, Hypertension, Osteoarthritis (OA), Prostate Disorder, Skin Disorder Additional Past Medical History / Comment(s): BPH. PSORIASIS. History of Any Multi-Drug Resistant Organisms: None Reported Past Surgical History: Appendectomy, Joint Replacement, Orthopedic Surgery Additional Past Surgical History / Comment(s): COLONOSCOPY. TOTAL RT HIP. Arthroscopy left Knee,rt knee arthroscopy Past Anesthesia/Blood Transfusion Reactions: No Reported Reaction Additional Past Anesthesia/Blood Transfusion Reaction / Comm: no hx blood transfusion Past Psychological History: No Psychological Hx Reported Additional Psychological History / Comment(s): claustrophobia Smoking Status: Former smoker Past Alcohol Use History: None Reported Additional Past Alcohol Use History / Comment(s): started smoking at age 18 quit at age 20 smoked 1/2ppd Past Drug Use History: None Reported - Past Family History Mother Daughter(s) Family Medical History: Cancer Additional Family Medical History / Comment(s): ovarian cancer-mother,dtr-breast CA Father Family Medical History: Cancer Medications and Allergies Home Medications Medication Instructions Recorded Confirmed Type Simvastatin [Zocor] 40 mg PO DAILY 03/26/16 11/06/21 History Tamsulosin [Flomax] 0.4 mg PO HS 01/19/21 11/06/21 History Apixaban [Eliquis] 2.5 mg PO BID 05/05/21 11/06/21 History Sodium Bicarbonate Tab 650 mg PO QAM 05/05/21 11/06/21 History hydrALAZINE HCL [Apresoline] 50 mg PO TID 05/05/21 11/06/21 History traMADol HCl [Ultram] 50 mg PO Q6H PRN #12 tab 05/07/21 11/06/21 Rx Allergies Allergy/AdvReac Type Severity Reaction Status Date / Time No Known Allergies Allergy Verified 11/09/21 11:18 Physical Exam Vitals: Vital Signs Temp Pulse Resp BP Pulse Ox 11/10/21 08:00 98.3 F 80 16 160/89 97 11/10/21 07:39 80 16 11/10/21 07:30 80 16 11/10/21 01:26 98.7 F 70 15 144/59 97 11/09/21 23:20 98.2 F 89 18 137/72 99 11/09/21 20:00 65 18 11/09/21 19:00 98.3 F 65 18 150/74 98 11/09/21 18:50 68 16 138/73 97 11/09/21 18:00 63 16 160/59 97 11/09/21 17:00 62 16 132/80 96 11/09/21 16:30 54 L 16 134/84 98 11/09/21 16:00 51 L 16 161/88 98 11/09/21 15:30 48 L 16 138/88 98 11/09/21 15:15 55 L 16 153/82 98 11/09/21 15:00 55 L 16 133/74 98 11/09/21 14:45 51 L 16 138/74 99 11/09/21 14:32 50 L 16 126/75 100 11/09/21 12:22 58 L 16 131/61 99 11/09/21 11:38 97.5 F L 57 L 16 146/69 99 Intake and Output 11/09/21 11/10/21 11/10/21 22:59 06:59 14:59 Intake Total 440 Output Total 325 Balance 115 Intake: IV 200 Oral 240 Output: Urine 325 Other: Voiding Method Urinal Toilet Weight 86.6 kg PHYSICAL EXAM: VITAL SIGNS: As above GENERAL: Sitting up in bed, no acute distress HEENT: Conjunctivae normal. eyes normal. Oral mucosa moist NECK: No JVD. No thyroid enlargement. No LNs CARDIOVASCULAR: S1, S2 regular. No murmur RESPIRATION: Breath sounds diminished in the bases. No rhonchi or crackles. No bronchial breathing. ABDOMEN: Soft, nontender . No guarding. no masses palpable. No ascites, No hepatosplenomegaly.Bowel sounds heard. LEGS: Right knee dressing clean dry and intact, minimal edema, no clubbing, no cyanosis. No calf pain. Positive DP pulse PSYCHIATRY: Alert and oriented X3, mood and affect normal. NERVOUS SYSTEM: Cranial N 2-12 grossly normal. Moves all 4 limbs. No focal deficits. Strength and sensation grossly intact.. Skin: Warm and dry, no rash Results CBC & Chem 7: 11/10/21 05:47 Labs: Abnormal Lab Results - Last 24 Hours (Table) 11/10/21 Range/Units 05:47 WBC 10.28 H (4.50-10.00) X 10*3/uL RBC 3.23 L (4.40-5.60) X 10*6/uL Hgb 10.0 L (13.0-17.0) g/dL Hct 30.7 L (39.6-50.0) % Immature Gran # 0.10 H (0.00-0.04) X 10*3/uL Neutrophils # 8.91 H (1.80-7.70) X 10*3/uL Lymphocytes # 0.54 L (0.90-5.00) X 10*3/uL Eosinophils # 0.01 L (0.04-0.35) X 10*3/uL Assessment and Plan Assessment: Right knee osteoarthritis, status post right total knee arthroplasty Chronic atrial fibrillation, on Eliquis Hypertension Hyperlipidemia BPH Osteoarthritis Former nicotine dependence Claustrophobia Plan: Continue on current medication regime ,monitoring and symptomatic treatment. Currently on Lovenox for dvt prophylaxis, Eliquis on hold. PPI added for GI prophylaxis. Home meds reviewed and resumed accordingly. Aggressive pulmonary toileting with incentive spirometer reinforced. PT pending. Discharge planning in progress as per primary. Thank you for the consult Dr. Parr. Follow-up with PCP, Dr. Fajardo in 1 week. The impression and plan of care has been dictated as directed. : I performed a history and examination of this patient, discussed the same with the dictator. I agree with the dictator's note ,documented as a scribe. Any additional findings or plans will be noted.
[2021-11-10] MEDS ORDERED: MULTIVITAMINS, THERA 1 EACH TAB PO SCH (12:00)
[2021-11-10] MEDS ORDERED: hydrALAZINE HCL 25 MG TAB PO SCH (16:00)
[2021-11-10] MEDS ORDERED: TAMSULOSIN 0.4 MG CAP.ER.24H PO SCH (21:00)
== END 2021-11-10 13:39 | disposition home health service (06) ==
LOC: OR 10:59 → 4SSUR 14:38 → OR 11-10 13:39
PROVIDERS: ATTEND Orthopaedic Surgery
DX: M17.11 Unilateral primary osteoarthritis, right knee (principal); I25.10 Atherosclerotic heart disease of native coronary artery without angina pectoris; E78.5 Hyperlipidemia, unspecified; I12.9 Hypertensive chronic kidney disease with stage 1 through stage 4 chronic kidney disease, or unspecified chronic kidney disease; N18.4 Chronic kidney disease, stage 4 (severe); I48.91 Unspecified atrial fibrillation; I77.6 Arteritis, unspecified; Z98.890 Other specified postprocedural states; N40.0 Benign prostatic hyperplasia without lower urinary tract symptoms; Z87.891 Personal history of nicotine dependence; L40.9 Psoriasis, unspecified; Z90.49 Acquired absence of other specified parts of digestive tract; Z96.641 Presence of right artificial hip joint; F40.240 Claustrophobia; Z80.3 Family history of malignant neoplasm of breast; Z80.41 Family history of malignant neoplasm of ovary; Z79.01 Long term (current) use of anticoagulants; Z79.899 Other long term (current) drug therapy
CPT/HCPCS: 27447; 97161; 64999; 76942; 85025; 88300; 73560; C1776; C1713 ×2; J2250; J1100; J0690 ×3; J2405; J3010; J1650; J2795 ×2; J2704; 64448

== ENCOUNTER → 2023-08-25 | Day surgery (SDC) | payer MEDICARE, OTHER ==
[2023-08-24 09:38] VITALS: BMI 27.2
[~2023-08-25] MED LIST changes: -ACETAMINOPHEN TAB 500 MG TAB PO PRN; -DEXAMETHASONE SOD PHOSPHATE 4 MG/ML 1 ML VIAL IV ONE; +GLYCOPYRROLATE 0.2 MG/ML 2 ML VIAL ONE; -HYDROmorphone 0.5 MG/0.5 ML SYRINGE IVP PRN; -LACTATED RINGERS 1,000 ML IV SCH; -LIDOCAINE 1% (10MG/ML) FOR IV START INTRADERMA PRN; +LIDOCAINE 2% (PF) 20 MG/ML 5 ML VIAL ONE; -MELOXICAM 7.5 MG TAB PO PRN; -MIDAZOLAM 2 MG/2 ML VIAL IV PRN; -ONDANSETRON 4 MG/2 ML VIAL IVP ONE; +PROPOFOL 10 MG/ML 20 ML VIAL IV ONE; -TRANEXAMIC ACID IN NACL,ISO-OS 1,000 MG in SALINE 1 100ML.BAG IVPB PRN
[2023-08-25 08:51] VITALS: TEMP 98
[2023-08-25] MEDS: LACTATED RINGERS 1,000 ML IV SCH (08:54)
--- NOTE | 2023-08-25 09:37 | P.OP ---
Date of Procedure: 08/25/23 Preoperative Diagnosis: Iron deficiency anemia Melena Postoperative Diagnosis: Antral gastritis Small/moderate hiatal hernia Esophagitis No minimal diverticulosis Procedure(s) Performed: EGD Anesthesia: MAC Surgeon: Russell Peralta Pathology: other (Antrum, esophagus) Condition: stable Disposition: PACU Description of Procedure: The patient was placed on the endoscopy table in the lateral position. He received IV sedation. Digital rectal exam was performed. This revealed no abnormalities. The flexible colonoscope was then placed patient anus and passed throughout the entire colon. The ileocecal valve was visualized. The cecum, ascending and transverse colon appeared normal. The descending colon per normal. In the sigmoid colon and a few scattered diverticuli. The scope was then brought back to the rectum and this appeared normal. Scope withdrawn the patient. Next the gas was placed oropharynx passed in the esophagus into this stomach. Scope was placed through the pylorus. The first and second portion of the duodenum appeared normal. The scope was then repacked the antrum this appeared mildly inflamed. A biopsy performed. The scope was then retroflexed and the Mainer of the stomach appeared normal. There was a moderate hiatal hernia. The GE junction was at 38 cm. The distal esophagus appeared inflamed. A biopsy was performed. The proximal esophagus appeared normal. Scope withdrawn the patient.
[2023-08-25 09:53] VITALS: RESP 14
[2023-08-25 10:22] VITALS: BP 139/68; PULSE 51
== END ==
LOC: ORWHC2ENDO 08:19
PROVIDERS: ATTEND Surgery
DX: K29.50 Unspecified chronic gastritis without bleeding (principal); K44.9 Diaphragmatic hernia without obstruction or gangrene; K20.90 Esophagitis, unspecified without bleeding; D50.9 Iron deficiency anemia, unspecified; I10 Essential (primary) hypertension; E78.5 Hyperlipidemia, unspecified; I48.91 Unspecified atrial fibrillation; L40.9 Psoriasis, unspecified; N40.0 Benign prostatic hyperplasia without lower urinary tract symptoms; M19.90 Unspecified osteoarthritis, unspecified site; Z79.01 Long term (current) use of anticoagulants; Z79.899 Other long term (current) drug therapy
CPT/HCPCS: 88305; 45378; 43239; J2704; J2001

== ENCOUNTER → 2023-08-31 | Outpatient (CLI) | payer MEDICARE ==
--- NOTE | 2023-08-31 21:30 | XR ---
EXAMINATION TYPE: XR lumbar spine 3V DATE OF EXAM: 08/31/2023 Comparison: None Clinical History: 83-year-old male M54.10 RADICULOPATHY, SITE UNSPECIFIED Findings: 5 lumbar type vertebral bodies. Moderate to advanced multilevel degenerative disc disease. Hypertroph ic facet arthropathy throughout especially mid to lower lumbar spine. Accentuated lower lumbar lordos is. Trace grade 1 retrolisthesis T12-L1, L1-L2, and L2-L3. Impression: 1. Advanced hypertrophic facet arthropathy especially mid to lower lumbar spine with accentuated lowe r lumbar lordosis and moderate to advanced multilevel degenerative disc disease. 2. Trace degenerative grade 1 retrolisthesis T12-L3 levels. 3. No vertebral compression collapse.
== END | disposition home or self-care (01) ==
LOC: RADXRMAIN 11:21
PROVIDERS: ATTEND Family Medicine
DX: M51.16 Intervertebral disc disorders with radiculopathy, lumbar region (principal); M47.26 Other spondylosis with radiculopathy, lumbar region; M43.16 Spondylolisthesis, lumbar region
CPT/HCPCS: 72100

== ENCOUNTER 2024-04-16 11:29 | Observation (INO) | payer MEDICARE ==
[2024-04-16 11:43] LABS: Glucose,Whole Blood 102 mg/dL (70-110)
[2024-04-16] MEDS: SODIUM CHLORIDE 0.9% 1,000 ML IV ONE (11:59)
[2024-04-16] MEDS: LORazepam 2 MG/ML INJ IV STA (12:03)
--- NOTE | 2024-04-16 12:03 | CT ---
EXAMINATION TYPE: CT brain wo con CT DLP: 1231.4 mGycm, Automated exposure control for dose reduction was used. DATE OF EXAM: 04/16/2024 11:55 AM COMPARISON: Prior CT Brain from 04/26/2021 . CLINICAL INDICATION:Male, 83 years old with history of Altered mental status, aphasia, anxiety, AMS, fall yesterday with head injury and on thinners TECHNIQUE: Brain: Multiple axial CT images of the brain were obtained without IV contrast. . Coronal and sagitta l reformats reviewed. FINDINGS: Brain: Extra-axial spaces: No abnormal extra-axial fluid collections. Ventricular system: Within normal limits Cerebral parenchyma: No acute intraparenchymal hemorrhage or mass effect. The friend-white junction is well differentiated. Confluent hypoattenuating areas are seen within the periventricular and subcort ical white matter. Cerebellum: Unremarkable. Mass effect: No evidence of midline shift. Intracranial vasculature: Atherosclerotic calcifications of the intracranial vessels. Soft tissues: Normal. Calvarium/osseous structures: No depressed skull fracture. Paranasal sinuses and mastoid air cells: The mastoid air cells are clear. Minimal mucosal thickening of the inferior bilateral maxillary sinuses. Visualized orbits: Senile calcific scleral plaques are present. IMPRESSION: 1. No acute intracranial process. 2. Nonspecific white matter changes, likely secondary to chronic small vessel ischemic disease. [facility], , 04/16/2024 12:01 PM
[2024-04-16 12:12] LABS: Basophils % (A) 1 %; Eosinophils # (A) 0.3 k/uL (0-0.7); Eosinophils % (A) 4 %; HCT 36.3 % (39.0-53.0); HGB 12.6 gm/dL (13.0-17.5); Lymphocytes % (A) 17 %; MCH 33.1 pg (25.0-35.0); MCHC 34.8 g/dL (31.0-37.0); MCV 95.4 fL (80.0-100.0); Mean Platelet Volume 7.6; Monocytes # (A) 0.4 k/uL (0-1.0); Monocytes % (A) 7 %; Neutrophils # (A) 4.2 k/uL (1.3-7.7); Neutrophils % (A) 69 %; Platelet Count 227 k/uL (150-450); RBC 3.81 m/uL (4.30-5.90); RDW 12.7 % (11.5-15.5); WBC 6.2 k/uL (3.8-10.6)
--- NOTE | 2024-04-16 12:20 | XR ---
EXAMINATION TYPE: XR chest 2V DATE OF EXAM: 04/16/2024 COMPARISON: 09/07/2023 HISTORY: Shortness of breath TECHNIQUE: Frontal and lateral views of the chest are obtained. FINDINGS: Scattered senescent parenchymal changes noted. Hyperinflation compatible with COPD. No evidence for infiltrate. No evidence for atelectasis. Heart size is stable. Mediastinal structures are stable and grossly unremarkable. No evidence for hilar prominence. Degenerative changes dorsal spine. IMPRESSION: 1. No evidence for acute pulmonary disease. [facility], , 04/16/2024 12:17 PM
[2024-04-16 12:25] LABS: Prothrombin Time 11.2 sec (10.0-12.5)
[2024-04-16 12:27] LABS: ALT 13 U/L (4-49); AST 23 U/L (17-59); African American GFR (CKD) 23 (>60 ml/min/1.73 sqM); Albumin 4.4 g/dL (3.5-5.0); Alcohol <10 mg/dL; Alkaline Phosphatase 90 U/L (38-126); Anion Gap 14 mmol/L; Blood Urea Nitrogen 32 mg/dL (9-20); Carbon Dioxide 18 mmol/L (22-30); Chloride 107 mmol/L (98-107); Glucose 98 mg/dL (74-99); Non-African American GFR(CKD) 20 (>60 ml/min/1.73 sqM); Potassium 4.8 mmol/L (3.5-5.1); Sodium 139 mmol/L (137-145); Total Bilirubin 0.8 mg/dL (0.2-1.3)
--- NOTE | 2024-04-16 12:51 | ED ---
General Adult HPI - General Chief complaint: Neuro Symptoms/Deficit Stated complaint: confusion Time Seen by Provider: 04/16/24 11:32 Source: patient, family, EMS, RN notes reviewed, old records reviewed Mode of arrival: EMS Limitations: altered mental status - History of Present Illness Initial comments: Patient is an 83-year-old male presents emergency department complaining of headaches, possible aphasia, altered mentation, as well as generalized shaking. Initially per EMS, symptoms started sometime yesterday. Patient did have a fall over 24 hours ago. Has been having worsening confusion as well as the symptoms for 12 hours. After extensive discussion with family, it is discovered that patient has been having the symptoms progressively worsening noticeably over the last week but have been present for multiple weeks. Denies any current headaches. Patient states he denies any chest pain, shortness of breath, abdominal pain. States he was having a headache earlier today. Has no other acute complaints. Patient appears anxious. He is on blood thinners. Patient is on blood thinners for history of atrial fibrillation. He is compliant with medications. Also history of hyperlipidemia. Presents for further evaluation a t this time.EMS concern for possible stroke but it seems like symptoms have been ongoing for weeks, worse over the last few days. Last known well was definitively over 12 hours ago, and family's concern for possible intracranial bleed secondary to the headache as well as fall however all symptoms were starting before that time.EMS was concern for possible aphasia however patient has no evidence of aphasia on exam here but is mildly confused to year which per family seems to be chronic for him. - Related Data Home Medications Medication Instructions Recorded Confirmed Simvastatin [Zocor] 40 mg PO HS 03/26/16 04/16/24 Tamsulosin [Flomax] 0.4 mg PO HS 01/19/21 04/16/24 Apixaban [Eliquis] 2.5 mg PO BID 05/05/21 04/16/24 Ferrous Sulfate [Iron (65 MG 325 mg PO DAILY 08/24/23 04/16/24 Elemental)] Sildenafil Citrate [Viagra] 100 mg PO Q72H PRN 08/24/23 04/16/24 calcitrioL 0.25 mcg PO MOFR 08/24/23 04/16/24 carvediloL [Coreg] 6.25 mg PO BID 08/24/23 04/16/24 hydrALAZINE HCL [Apresoline] 25 mg PO TID 04/16/24 04/16/24 hydrALAZINE HCL [Apresoline] 50 mg PO TID 04/16/24 04/16/24 Previous Rx's Medication Instructions Recorded Famotidine [Pepcid] 20 mg PO DAILY #30 tab 09/08/23 Allergies Allergy/AdvReac Type Severity Reaction Status Date / Time No Known Allergies Allergy Verified 04/16/24 13:41 Review of Systems ROS Statement: Those systems with pertinent positive or pertinent negative responses have been documented in the HPI. Review of Systems: CONST: Denies fever EYES: Denies blurry vision ENT: Denies nasal congestion C/V: Denies Chest pain RESP: Denies shortness of breath GI: Denies abdominal pain : Denies dysuria SKIN: Denies rash. MSK: Denies joint pain. NEURO: Denies headache ROS Other: All systems not noted in ROS Statement are negative. Past Medical History Past Medical History: Atrial Fibrillation, Hyperlipidemia, Hypertension, Osteoarthritis (OA), Prostate Disorder, Renal Disease, Skin Disorder Additional Past Medical History / Comment(s): BPH. PSORIASIS. History of Any Multi-Drug Resistant Organisms: None Reported Past Surgical History: Orthopedic Surgery Additional Past Surgical History / Comment(s): COLONOSCOPY. RT BELEN. Arthroscopy left Knee, RT TKA 11/09/21, RIGHT HIP REPLACED Past Anesthesia/Blood Transfusion Reactions: No Reported Reaction Past Psychological History: No Psychological Hx Reported Smoking Status: Former smoker Past Alcohol Use History: None Reported Past Drug Use History: None Reported - Past Family History Mother Daughter(s) Family Medical History: Cancer Additional Family Medical History / Comment(s): ovarian cancer-mother,dtr-breast CA Father Family Medical History: Cancer Mother Family Medical History: Cancer General Exam - General Exam Comments Initial Comments: General: Appears anxious. HEAD: Normal with no signs of head trauma. Negative Blackburn sign. Negative raccoon eyes. EYES: PERRLA, EOMI, conjunctiva normal, no discharge. Pupils are 3 mm and equal bilaterally. ENT: Hearing grossly intact, normal oropharynx. Bilateral tympanic membranes within acceptable limits. RESPIRATORY: Clear breath sounds bilaterally. No wheezes, rales, or rhonchi. C/V: Irregular rate and rhythm. S1 and S2 auscultated, no edema, peripheral pulses 2+ and intact throughout ABD: Abd is soft, nontender, nondistended EXT: Normal range of motion, no obvious deformity. Pelvis is stable. No midline cervical, thoracic, lumbar spine tenderness to palpation. SKIN: No rashes or lesions observed on exposed skin. NEURO: Alert and oriented x 2-3. NIH is 0. GCS of 15. No obvious focal deficits. Patient is tremulous however appears extremely anxious at this time. Limitations: altered mental status Course Vital Signs 04/16/24 04/16/24 04/16/24 11:33 11:56 12:21 Temperature 97.2 F L Pulse Rate 77 68 65 Respiratory 18 24 18 Rate Blood Pressure 201/110 154/106 187/146 O2 Sat by Pulse 97 100 100 Oximetry Medical Decision Making - Medical Decision Making Was pt. sent in by a medical professional or institution (, PA, RN MOBILE, urgent care, hospital, or half-way...) When possible be specific @ -No Did you speak to anyone other than the patient for history (EMS, parent, family, police, friend...)? What history was obtained from this source @ -Patient's children, assist with past medical history. EMS also provides past medical history as well as HPI history. Family is able to confirm that symptoms seem to be more of a progressive issue over the last few weeks with noticeable change worsening over the last couple days and concern for possible worsening since the patient's fall over 24 hours ago. Did you review nursing and triage notes (agree or disagree)? Why? @ -I reviewed and agree with nursing and triage notes Were old charts reviewed (outside hosp., previous admission, EMS record, old EKG, old radiological studies, urgent care reports/EKG's, half-way records)? Report findings @ -Reviewed patient's medication chart confirming patient is on Eliquis. Differential Diagnosis (chest pain, altered mental status, abdominal pain women, abdominal pain men, vaginal bleeding, weakness, fever, dyspnea, syncope, head ache, dizziness, GI bleed, back pain, seizure, CVA, palpatations, mental health, musculoskeletal)? @ -Fall, infection, intracranial injury, intracranial trauma, CVA. This list is not all inclusive. EKG interpreted by me (3pts min.). @ -As above X-rays interpreted by me (1pt min.). @ -Chest x-ray reveals no obvious acute cardiopulmonary process. CT interpreted by me (1pt min.). @ -CT brain reveals no obvious acute intracranial process. U/S interpreted by me (1pt. min.). @ -None done What testing was considered but not performed or refused? (CT, X-rays, U/S, labs)? Why? @ -None What meds were considered but not given or refused? Why? @ -None Did you discuss the management of the patient with other professionals (professionals i.e. , PA, RN MOBILE, lab, RT, psych nurse, social security specialist, guidance adviser, teacher, recreation officer, sample case porter)? Give summary @ -Discussed with the admitting provider, Dr. Fajardo who accepted the admission. Was smoking cessation discussed for >3mins.? @ -No Was critical care preformed (if so, how long)? @ -Yes, 33 minutes. Were there social determinants of health that impacted care today? How? (Homelessness, low income, unemployed, alcoholism, drug addiction, t ransportation, low edu. Level, literacy, decrease access to med. care, senior living, rehab)? @ -No Was there de-escalation of care discussed even if they declined (Discuss DNR or withdrawal of care, Hospice)? DNR status @ -No What co-morbidities impacted this encounter? (DM, HTN, Smoking, COPD, CAD, Cance r, CVA, ARF, Chemo, Hep., AIDS, mental health diagnosis, sleep apnea, morbid obesity)? @ -History of A-fib on Eliquis, progressive history of confusion, possible dementia Was patient admitted / discharged? Hospital course, mention meds given and route, prescriptions, significant lab abnormalities, going to OR and other pertinent info. @ -Based on patient's presentation and physical exam, patient with a fall on blood thinners over 24 hours ago. Does not meet trauma activation criteria. Patient is also having some increased confusion however does seem to be more of a chronic issue ongoing for multiple weeks versus acutely worsening. Patient does seem slightly more confused today with shaking which is why family called EMS however they did state he has been having these issues prior to the fall as well. He appears to be at his baseline for him for the last few weeks. Patient does appear anxious. Denies any pain at this time. NIH is 0. Apparently patient has been in his current state at least since yesterday afternoon however patient is also progressively gotten to this point over the last few weeks. Family is at bedside and helps with history. We will obtain CT brain as well as altered mental status workup. Does not meet criteria for stroke activation. EMS was concerned for possible aphasia however patient has no aphasia when I evaluate him. Patient and family in agreement with this plan. Vitals remarkable for mild hypertension but I do suspect this secondary to anxiety as he is hyperventilating as well. He will be given a small dose of Ativan. EKG shows no signs of acute ischemia. Laboratory studies are unremarkable. Patient does have CKD but he is currently at his baseline with a creatinine of 2.87 and BUN of 32. CT brain shows no obvious acute intracranial process other than chronic degenerative changes. Chest x-ray unremarkable. On reevaluation, patient is resting more comfortably at this time. Blood pressures improved 154/106. She seems more calm. I spoke with family as well as patient and he will be admitted to the hospital for neurology evaluation. They were in agreement this plan. Discussed extensively my concern for possible developing dementia which is one of the reasons for admission and they are in agreement with this assessment as well. Patient will be admitted for further evaluation. I spoke with the admitting for provider, Dr. Fajardo who accepted the admission. Neurology consulted. Undiagnosed new problem with uncertain prognosis? @ -No Drug Therapy requiring intensive monitoring for toxicity (Heparin, Nitro, In sulin, Cardizem)? @ -No Were any procedures done? @ -No Diagnosis/symptom? @ -Confusion, altered mental status Acute, or Chronic, or Acute on Chronic? @ -Acute versus acute on chronic Uncomplicated (without systemic symptoms) or Complicated (systemic symptoms)? @ -Complicated Side effects of treatment? @ -No Exacerbation, Progression, or Severe Exacerbation? @ -No Poses a threat to life or bodily function? How? (Chest pain, [place], [place], pneumonia, PE, COPD, DKA, ARF, appy, cholecystitis, CVA, Diverticulitis, Homicidal, Suicidal, threat to staff... and all critical care pts) @ -Potentially, yes - Lab Data Result diagrams: 04/16/24 11:47 04/16/24 11:47 Lab Results 04/16/24 04/16/24 04/16/24 Range/Units 11:32 11:47 11:47 WBC 6.2 (3.8-10.6) k/uL RBC 3.81 L (4.30-5.90) m/uL Hgb 12.6 L (13.0-17.5) gm/dL Hct 36.3 L (39.0-53.0) % MCV 95.4 (80.0-100.0) fL MCH 33.1 (25.0-35.0) pg MCHC 34.8 (31.0-37.0) g/dL RDW 12.7 (11.5-15.5) % Plt Count 227 (150-450) k/uL MPV 7.6 Neutrophils % 69 % Lymphocytes % 17 % Monocytes % 7 % Eosinophils % 4 % Basophils % 1 % Neutrophils # 4.2 (1.3-7.7) k/uL Lymphocytes # 1.0 (1.0-4.8) k/uL Monocytes # 0.4 (0-1.0) k/uL Eosinophils # 0.3 (0-0.7) k/uL Basophils # 0.0 (0-0.2) k/uL PT 11.2 (10.0-12.5) sec INR 1.0 (<1.2) APTT 26.0 (22.0-30.0) sec Sodium (137-145) mmol/L Potassium (3.5-5.1) mmol/L Chloride (98-107) mmol/L Carbon Dioxide (22-30) mmol/L Anion Gap mmol/L BUN (9-20) mg/dL Creatinine (0.66-1.25) mg/dL Est GFR (CKD-EPI)AfAm (>60 ml/min/1.73 sqM) Est GFR (CKD-EPI)NonAf (>60 ml/min/1.73 sqM) Glucose (74-99) mg/dL POC Glucose (mg/dL) 102 (70-110) mg/dL POC Glu Manager Mba ID Darling Иван Calcium (8.4-10.2) mg/dL Total Bilirubin (0.2-1.3) mg/dL AST (17-59) U/L ALT (4-49) U/L Alkaline Phosphatase (38-126) U/L Ammonia (<30) umol/L Total Protein (6.3-8.2) g/dL Albumin (3.5-5.0) g/dL Urine Color Urine Appearance (Clear) Urine pH (5.0-8.0) Ur Specific [place] (1.001-1.035) Urine Protein (Negative) Urine Glucose (UA) (Negative) Urine Ketones (Negative) Urine Blood (Negative) Urine Nitrite (Negative) Urine Bilirubin (Negative) Urine Urobilinogen (<2.0) mg/dL Ur Leukocyte Esterase (Negative) Urine Opiates Screen (NotDetected) Ur Oxycodone Screen (NotDetected) Urine Methadone Screen (NotDetected) Ur Barbiturates Screen (NotDetected) U Tricyclic Antidepress (NotDetected) Ur Phencyclidine Scrn (NotDetected) Ur Amphetamines Screen (NotDetected) U Methamphetamines Scrn (NotDetected) U Benzodiazepines Scrn (NotDetected) Urine Cocaine Screen (NotDetected) U Marijuana (THC) Screen (NotDetected) Serum Alcohol mg/dL Influenza Type A (PCR) (Not Detectd) Influenza Type B (PCR) (Not Detectd) RSV (PCR) (Not Detectd) SARS-CoV-2 (PCR) (Not Detectd) 04/16/24 04/16/24 04/16/24 Range/Units 11:47 11:47 11:47 WBC (3.8-10.6) k/uL RBC (4.30-5.90) m/uL Hgb (13.0-17.5) gm/dL Hct (39.0-53.0) % MCV (80.0-100.0) fL MCH (25.0-35.0) pg MCHC (31.0-37.0) g/dL RDW (11.5-15.5) % Plt Count (150-450) k/uL MPV Neutrophils % % Lymphocytes % % Monocytes % % Eosinophils % % Basophils % % Neutrophils # (1.3-7.7) k/uL Lymphocytes # (1.0-4.8) k/uL Monocytes # (0-1.0) k/uL Eosinophils # (0-0.7) k/uL Basophils # (0-0.2) k/uL PT (10.0-12.5) sec INR (<1.2) APTT (22.0-30.0) sec Sodium 139 (137-145) mmol/L Potassium 4.8 (3.5-5.1) mmol/L Chloride 107 (98-107) mmol/L Carbon Dioxide 18 L (22-30) mmol/L Anion Gap 14 mmol/L BUN 32 H (9-20) mg/dL Creatinine 2.87 H (0.66-1.25) mg/dL Est GFR (CKD-EPI)AfAm 23 (>60 ml/min/1.73 sqM) Est GFR (CKD-EPI)NonAf 20 (>60 ml/min/1.73 sqM) Glucose 98 (74-99) mg/dL POC Glucose (mg/dL) (70-110) mg/dL POC Glu Manager Mba ID Calcium 10.0 (8.4-10.2) mg/dL Total Bilirubin 0.8 (0.2-1.3) mg/dL AST 23 (17-59) U/L ALT 13 (4-49) U/L Alkaline Phosphatase 90 (38-126) U/L Ammonia <9 (<30) umol/L Total Protein 7.0 (6.3-8.2) g/dL Albumin 4.4 (3.5-5.0) g/dL Urine Color Colorless Urine Appearance Clear (Clear) Urine pH 6.5 (5.0-8.0) Ur Specific [place] 1.012 (1.001-1.035) Urine Protein Trace H (Negative) Urine Glucose (UA) Negative (Negative) Urine Ketones Negative (Negative) Urine Blood Negative (Negative) Urine Nitrite Negative (Negative) Urine Bilirubin Negative (Negative) Urine Urobilinogen <2.0 (<2.0) mg/dL Ur Leukocyte Esterase Negative (Negative) Urine Opiates Screen Not Detected (NotDetected) Ur Oxycodone Screen Not Detected (NotDetected) Urine Methadone Screen Not Detected (NotDetected) Ur Barbiturates Screen Not Detected (NotDetected) U Tricyclic Antidepress Not Detected (NotDetected) Ur Phencyclidine Scrn Not Detected (NotDetected) Ur Amphetamines Screen Not Detected (NotDetected) U Methamphetamines Scrn Not Detected (NotDetected) U Benzodiazepines Scrn Not Detected (NotDetected) Urine Cocaine Screen Not Detected (NotDetected) U Marijuana (THC) Screen Not Detected (NotDetected) Serum Alcohol <10 mg/dL Influenza Type A (PCR) (Not Detectd) Influenza Type B (PCR) (Not Detectd) RSV (PCR) (Not Detectd) SARS-CoV-2 (PCR) (Not Detectd) 04/16/24 Range/Units 11:47 WBC (3.8-10.6) k/uL RBC (4.30-5.90) m/uL Hgb (13.0-17.5) gm/dL Hct (39.0-53.0) % MCV (80.0-100.0) fL MCH (25.0-35.0) pg MCHC (31.0-37.0) g/dL RDW (11.5-15.5) % Plt Count (150-450) k/uL MPV Neutrophils % % Lymphocytes % % Monocytes % % Eosinophils % % Basophils % % Neutrophils # (1.3-7.7) k/uL Lymphocytes # (1.0-4.8) k/uL Monocytes # (0-1.0) k/uL Eosinophils # (0-0.7) k/uL Basophils # (0-0.2) k/uL PT (10.0-12.5) sec INR (<1.2) APTT (22.0-30.0) sec Sodium (137-145) mmol/L Potassium (3.5-5.1) mmol/L Chloride (98-107) mmol/L Carbon Dioxide (22-30) mmol/L Anion Gap mmol/L BUN (9-20) mg/dL Creatinine (0.66-1.25) mg/dL Est GFR (CKD-EPI)AfAm (>60 ml/min/1.73 sqM) Est GFR (CKD-EPI)NonAf (>60 ml/min/1.73 sqM) Glucose (74-99) mg/dL POC Glucose (mg/dL) (70-110) mg/dL POC Glu Manager Mba ID Calcium (8.4-10.2) mg/dL Total Bilirubin (0.2-1.3) mg/dL AST (17-59) U/L ALT (4-49) U/L Alkaline Phosphatase (38-126) U/L Ammonia (<30) umol/L Total Protein (6.3-8.2) g/dL Albumin (3.5-5.0) g/dL Urine Color Urine Appearance (Clear) Urine pH (5.0-8.0) Ur Specific [place] (1.001-1.035) Urine Protein (Negative) Urine Glucose (UA) (Negative) Urine Ketones (Negative) Urine Blood (Negative) Urine Nitrite (Negative) Urine Bilirubin (Negative) Urine Urobilinogen (<2.0) mg/dL Ur Leukocyte Esterase (Negative) Urine Opiates Screen (NotDetected) Ur Oxycodone Screen (NotDetected) Urine Methadone Screen (NotDetected) Ur Barbiturates Screen (NotDetected) U Tricyclic Antidepress (NotDetected) Ur Phencyclidine Scrn (NotDetected) Ur Amphetamines Screen (NotDetected) U Methamphetamines Scrn (NotDetected) U Benzodiazepines Scrn (NotDetected) Urine Cocaine Screen (NotDetected) U Marijuana (THC) Screen (NotDetected) Serum Alcohol mg/dL Influenza Type A (PCR) Not Detected (Not Detectd) Influenza Type B (PCR) Not Detected (Not Detectd) RSV (PCR) Not Detected (Not Detectd) SARS-CoV-2 (PCR) Not Detected (Not Detectd) - EKG Data -: EKG Interpreted by Me EKG Comments: 12-lead Electrocardiogram Interpretation Note EKG was reviewed and interpreted by myself. 12-lead ECG performed at 1140 is interpreted by me as revealing atrial fibrillation with right bundle branch block at a rate of 65 beats per minute. Left axis deviation. QRS duration is 135 ms, QTc is 475 ms.. There were no ST or T wave abnormalities to suggest myocardial ischemia or injury. R wave progression across the precordium was satisfactory. By my interpretation this EKG is non-diagnostic for acute ischemia. Critical Care Time Critical Care Time: Yes Total Critical Care Time: 33 Disposition Clinical Impression: Confusion, AMS (altered mental status) Disposition: ADMITTED IP TO THIS HOSP Condition: Stable Is patient prescribed a controlled substance at d/c from ED?: No Time of Disposition: 13:25
[2024-04-16] MEDS ORDERED: NALOXONE 0.4 MG/ML 1 ML VIAL IV PRN (13:24)
[2024-04-16] MEDS ORDERED: ONDANSETRON 4 MG/2 ML VIAL IVP PRN (13:24)
[2024-04-16] MEDS ORDERED: ACETAMINOPHEN TAB 325 MG TAB PO PRN (13:24)
[2024-04-16 13:29] LABS: Appearance,Urine Clear (Clear); Bilirubin,Urine Negative (Negative); Blood,Urine Negative (Negative); Color,Urine Colorless; Glucose,Urine (UA) Negative (Negative); Ketones,Urine Negative (Negative); Leukocyte Esterase,Urine Negative (Negative); Nitrite,Urine Negative (Negative); PH, Urine 6.5 (5.0-8.0); Protein,Urine Trace (Negative); Specific Gravity,Urine 1.012 (1.001-1.035); Urobilinogen,Urine <2.0 mg/dL (<2.0)
[2024-04-16] MEDS: SODIUM CHLORIDE 0.9% 1,000 ML IV SCH (13:33)
[2024-04-16 13:41] LABS: Amphetamine Screen,Urine Not Detected (NotDetected); Barbiturate Screen,Urine Not Detected (NotDetected); Benzodiazepines Screen,Urine Not Detected (NotDetected); Cocaine Screen,Urine Not Detected (NotDetected); Methadone Screen, Urine Not Detected (NotDetected); Opiate Screen,Urine Not Detected (NotDetected); Oxycodone Screen, Urine Not Detected (NotDetected); Phencyclidine Screen,Urine Not Detected (NotDetected); Tricyclic Antidepressant,Urine Not Detected (NotDetected); Urn Cannabinoid Scrn Not Detected (NotDetected)
--- NOTE | 2024-04-16 19:59 | P.CNNES ---
History of Present Illness Consult date: 04/16/24 Requesting physician: Frank Alegre Reason for Consult: progressively worsening of confusion History of Present Illness: This is an 83-year-old gentleman who presents the emergency department because of dizziness, headache and sensation of about to pass out. He is accompanied with his and his son was at bedside. This past Tuesday patient fell down 2 steps going down the garage and he does not know how he fell but denies any loss of consciousness. Denies passing out. Denies any tongue bite urinary incontinence bowel incontinence. Then today he states that he has been feeling dizzy with a headache. He feels the headache is over the bilateral frontal across his head forehead and he feels it moderate in severity. He denies any nausea or vomiting. Denies any radiation of the headache. The felt as a result of the headache it was aggravating and he screamed out in pain. He also felt dizzy and felt he was about to pass out but did not pass out. He denies any focal weakness. He could not describe the exact dizziness. Denies any diplopia. Denies any history of stroke. Denies any history of seizure. According to family he feels a bit more anxious than baseline. He feels the headache has resolved and dizziness drastically improved. Per the she stated that he was having the headache over the right side involving the forehead the side of the head the ear going down but as stated earlier patient feels drastically better. He does have underlying history of atrial fibrillatio n and is on Eliquis and he did not not miss his medication. He does have underlying kidney insufficiency. Per ED physician family felt he has generalized shaking. Some of the workup during this hospital visit consisted of: Patient is afebrile. White blood cell is within normal limits Ammonia level is less than 9. I reviewed the rest of the lab workup on him. Urine drug screen is not detected. Serum alcohol is less than 10. CT of the head is reported as no acute intracranial process. I personally reviewed the CT and agree with the report. Review of Systems The positive and negative as per HPI. Past Medical History Past Medical History: Atrial Fibrillation, Hyperlipidemia, Hypertension, Osteoarthritis (OA), Prostate Disorder, Renal Disease, Skin Disorder Additional Past Medical History / Comment(s): BPH. PSORIASIS. History of Any Multi-Drug Resistant Organisms: None Reported Past Surgical History: Orthopedic Surgery Additional Past Surgical History / Comment(s): COLONOSCOPY. RT BELEN. Arthroscopy left Knee, RT TKA 11/09/21, RIGHT HIP REPLACED Past Anesthesia/Blood Transfusion Reactions: No Reported Reaction Past Psychological History: No Psychological Hx Reported Smoking Status: Former smoker Past Alcohol Use History: None Reported Past Drug Use History: None Reported - Past Family History Mother Daughter(s) Family Medical History: Cancer Additional Family Medical History / Comment(s): ovarian cancer-mother,dtr-breast [place] Father Family Medical History: Cancer Mother Family Medical History: Cancer Medications and Allergies Home Medications Medication Instructions Recorded Confirmed Type Simvastatin [Zocor] 40 mg PO HS 03/26/16 04/16/24 History Tamsulosin [Flomax] 0.4 mg PO HS 01/19/21 04/16/24 History Apixaban [Eliquis] 2.5 mg PO BID 05/05/21 04/16/24 History Ferrous Sulfate [Iron (65 MG 325 mg PO DAILY 08/24/23 04/16/24 History Elemental)] Sildenafil Citrate [Viagra] 100 mg PO Q72H PRN 08/24/23 04/16/24 History calcitrioL 0.25 mcg PO MOFR 08/24/23 04/16/24 History carvediloL [Coreg] 6.25 mg PO BID 08/24/23 04/16/24 History Famotidine [Pepcid] 20 mg PO DAILY #30 tab 09/08/23 04/16/24 Rx hydrALAZINE HCL [Apresoline] 25 mg PO TID 04/16/24 04/16/24 History hydrALAZINE HCL [Apresoline] 50 mg PO TID 04/16/24 04/16/24 History Allergies Allergy/AdvReac Type Severity Reaction Status Date / Time No Known Allergies Allergy Verified 04/16/24 13:41 Physical Examination - Vital Signs Vital Signs: Vital Signs Temp Pulse Resp BP Pulse Ox 04/16/24 18:00 75 16 151/88 98 04/16/24 17:00 73 16 156/79 98 04/16/24 16:00 72 16 154/80 98 04/16/24 15:00 74 18 152/77 98 04/16/24 12:21 65 18 187/146 100 04/16/24 11:56 68 24 154/106 100 04/16/24 11:33 97.2 F L 77 18 201/110 97 Intake and Output 04/16/24 04/16/24 04/16/24 06:59 14:59 22:59 Other: Weight 83.915 kg GENERAL: The patient is sitting up in bed and is not in acute distress. He seems a bit anxious. NEUROLOGICAL: Higher mental function: The patient is awake, alert, oriented to self, place and time. Patient is following commands. No aphasia and no neglect. Cranial nerves: The pupils are round, equal and reactive to light and accommodation. Visual rutledge are full to confrontation throughout. Extraocular movement is intact no nystagmus is noted. Facial sensation is normal to touch throughout. The facial strength is normal throughout. Hearing is moderate to severely bilaterally to hand rub. Tongue is midline and moved [id number] without any difficulty. No dysarthria is noted. Shoulder shrug is normal bilaterally. Motor: The strength is 5 over 5 throughout. Normal tone and bulk. Cerebellum: Normal finger to nose heel to chin bilaterally. Sensation: Sensation is normal to touch throughout. Reflexes (right/left):2+ throughout. Results - Laboratory Findings CBC and BMP: 04/16/24 11:47 04/16/24 11:47 Abnormal Lab Findings: Abnormal Labs 04/16/24 04/16/24 04/16/24 11:47 11:47 11:47 RBC 3.81 L Hgb 12.6 L Hct 36.3 L Carbon Dioxide 18 L BUN 32 H Creatinine 2.87 H Urine Protein Trace H Assessment and Plan Assessment: This is an 83-year-old gentleman who present emergency department because of headache, dizziness and presyncopal episode. Per the ED note it seems the patient has been having confusion for the past 12 hours and he had a fall this past Tuesday on and the patient denies any loss of consciousness or passing out is does not know how he fell. He denies any head trauma. Also as noted by the ED physician the patient has generalized shaking. On examination he was anxious. Episode of headache, anxious, whole body shaking, dizziness, presyncope and fall this past Tuesday: One of differential is seizure--feels he is doing better currently. History of atrial fibrillation on eliqius Chronic kidney insufficiency Hypertension Very hard of hearing Plan: I ordered routine EEG I ordered MRI of the brain, MRA head and carotid duplex Ordered vitamin B12, TSH Defer the rest of the medical management to primary and other specialist. The plan is discussed with patient and family members. Thank you for the consultation. Time with Patient: Greater than 30
--- NOTE | 2024-04-16 21:26 | US ---
EXAMINATION TYPE: US carotid duplex BILAT DATE OF EXAM: 04/16/2024 COMPARISON: NONE CLINICAL INDICATION: Male, 83 years old with history of dizziness, syncope; Dizziness TECHNIQUE: Grayscale, color Doppler and spectral Doppler evaluation of the bilateral carotid systems and vertebral arteries.Indirect Doppler criteria was utilized. FINDINGS: EXAM MEASUREMENTS: RIGHT: Peak Systolic Velocity (PSV) cm/sec ----- Right CCA: 62.8 ----- Right ICA: 100.0 ----- Right ECA: 111.3 ICA/CCA ratio: 1.6 RIGHT: End Diastole cm/sec ----- Right CCA: 14.4 ----- Right ICA: 7.9 ----- Right ECA: 19.2 LEFT: Peak Systolic Velocity (PSV) cm/sec ----- Left CCA: 86.6 ----- Left ICA: 56.6 ----- Left ECA: 67.1 ICA/CCA ratio: 0.7 LEFT: End Diastole cm/sec ----- Left CCA: 15.4 ----- Left ICA: 14.7 ----- Left ECA: 10.4 VERTEBRALS (direction of flow): Right Vertebral: Antegrade Left Vertebral: Antegrade Rhythm: Normal FLOOR COVERER NOTES: There is a 1.6 cm lymph node seen with a 5mm hilum anterior to the mid CCA. Plaque seen within bilateral bifurcations. No significant velocity elevations seen IMPRESSION: Scattered atherosclerosis without sonographic evidence of hemodynamically significant carotid vascula r stenosis. [facility], , 04/16/2024 9:24 PM
[2024-04-17 08:27] LABS: Basophils # (A) 0.06 X 10*3/uL (0.00-0.10); Basophils % (A) 1.3 %; Eosinophils # (A) 0.26 X 10*3/uL (0.04-0.35); Eosinophils % (A) 5.6 %; HGB 9.8 g/dL (13.0-17.0); Lymphocytes # (A) 0.84 X 10*3/uL (0.90-5.00); Lymphocytes % (A) 18.1 %; MCH 31.8 pg (27.0-32.0); MCHC 33.8 g/dL (32.0-37.0); MCV 94.2 FL (80.0-97.0); Mean Platelet Volume 9.8 FL (9.5-12.2); Monocytes # (A) 0.46 X 10*3/uL (0.20-1.00); Monocytes % (A) 9.9 %; NRBC Per 100 WBC 0 X 10*3/uL (0.00-0.01); Neutrophils # (A) 3.01 X 10*3/uL (1.80-7.70); Neutrophils % (A) 64.7 %; Platelet Count 164 X 10*3/uL (140-440); RBC 3.08 X 10*6/uL (4.40-5.60); RDW 12.1 % (11.5-14.5); WBC 4.65 X 10*3/uL (4.50-10.00)
[2024-04-17 08:39] LABS: BUN/Creat Ratio 10.73 Ratio (12.00-20.00); Blood Urea Nitrogen 27.9 mg/dL (9.0-27.0); Calcium 8.4 mg/dL (8.7-10.3); Carbon Dioxide 21.3 mmol/L (21.6-31.8); Chloride 110 mmol/L (96-109); Glucose 89 mg/dL (70-110); Sodium 141 mmol/L (135-145)
[2024-04-17] MEDS: FAMOTIDINE 20 MG TAB PO SCH (08:48)
[2024-04-17] MEDS: FERROUS SULFATE 325 MG TAB PO SCH (08:48)
[2024-04-17] MEDS: hydrALAZINE HCL 25 MG TAB PO SCH ×2 (08:48→18:19)
[2024-04-17] MEDS: APIXABAN 2.5 MG TABLET PO SCH (08:48)
[2024-04-17] MEDS: hydrALAZINE HCL 50 MG TAB PO SCH (08:48)
[2024-04-17] MEDS: carvediloL 6.25 MG TAB PO SCH (09:48)
[2024-04-17] MEDS ORDERED: hydrALAZINE HCL 50 MG TAB PO SCH (18:00)
--- NOTE | 2024-04-17 18:16 | P.PN ---
Subjective Progress Note Date: 04/17/24 I am following up with the patient and he is accompanied with his and he feels drastically better. Per the he is back to baseline. He seems very less anxious compared to yesterday. Denies any new neurological issues. He denies of any further headache, dizziness. Again he feels back to baseline. Objective - Vital Signs Vital signs: Vital Signs Temp 97.8 F 04/17/24 17:21 Pulse 58 L 04/17/24 17:21 Resp 16 04/17/24 17:21 BP 149/72 04/17/24 17:21 Pulse Ox 98 04/17/24 17:21 FiO2 Intake & Output 04/16/24 04/17/24 04/17/24 18:59 06:59 18:59 Intake Total 358 Output Total 300 Balance -300 358 Weight 83.915 kg Intake: Oral 358 Output: Urine 300 Other: # Voids 1 2 - Exam General: Sitting up in a chair and is not in acute distress. Neuro: Patient is awake alert oriented to self place and time. Is following simple commands. No aphasia. No facial weakness. No dysarthria Motor: Strength Is 5 out of 5. Some of the workup during this hospital visit consisted of: Patient is afebrile. White blood cell is within normal limits Ammonia level is less than 9. Vitamin B12 is 329 TSH is 4.120 Urine drug screen is not detected. Serum alcohol is less than 10. CT of the head is reported as no acute intracranial process. I personally reviewed the CT and agree with the report. Carotid duplex is reported as scattered atherosclerosis without sonographic evidence of hemodynamically significant carotid vascular stenosis. - Labs CBC & Chem 7: 04/17/24 04:34 04/17/24 04:34 Labs: Abnormal Lab Results - Last 24 Hours (Table) 04/17/24 04/17/24 Range/Units 04:34 04:34 RBC 3.08 L (4.40-5.60) X 10*6/uL Hgb 9.8 L (13.0-17.0) g/dL Hct 29.0 L (39.6-50.0) % Lymphocytes # 0.84 L (0.90-5.00) X 10*3/uL Chloride 110 H (96-109) mmol/L Carbon Dioxide 21.3 L (21.6-31.8) mmol/L BUN 27.9 H (9.0-27.0) mg/dL Creatinine 2.6 H (0.6-1.5) mg/dL Est GFR (CKD-EPI) 24 L (>=60) BUN/Creatinine Ratio 10.73 L (12.00-20.00) Ratio Calcium 8.4 L (8.7-10.3) mg/dL Assessment and Plan Assessment: This is an 83-year-old gentleman who present emergency department because of headache, dizziness and presyncopal episode. Per the ED note it seems the patient has been having confusion for the past 12 hours and he had a fall this past Tuesday on and the patient denies any loss of consciousness or passing out is does not know how he fell. He denies any head trauma. Also as noted by the ED physician the patient has generalized shaking. On examination he was anxious. Episode of headache, anxious, whole body shaking, dizziness, presyncope and fall this past Tuesday: One of differential is seizure also rule out stroke/TIA--feels he is doing better currently and is past to baseline. History of atrial fibrillation on eliqius Chronic kidney insufficiency Hypertension Very hard of hearing Plan: Routine EEG preliminary: Normal. MRI of the brain, MRA head is pending. Defer the rest of the medical management to primary and other specialist. The plan is discussed with patient and family members. Time with Patient: Less than 30
[2024-04-17] MEDS: ATORVASTATIN 20 MG TAB PO SCH (20:46)
[2024-04-17] MEDS: TAMSULOSIN 0.4 MG CAP.ER.24H PO SCH (20:46)
--- NOTE | 2024-04-18 02:37 | EEG ---
ELECTROENCEPHALOGRAM REPORT CLINICAL HISTORY: This is an 83-year-old gentleman with a presyncopal episode. The video EEG is obtained to evaluate for seizure epileptiform activity. RELEVANT MEDICATION: The patient is not on any antiepileptic drugs. EEG TYPE: This is a routine 21-channel EEG with video using the 10/20 electrode placement system. DESCRIPTION: Wakefulness is obtained. During awake state, the posterior-dominant rhythm consists of [id number] voltage of 8.5 to 9 hertz activity that is well modulated, well sustained. There is no physiological stage 2 sleep architecture. There is no focal slowing. Interictal and ictal is none. ACTIVATION PROCEDURE: Photic stimulation did not evoke a posterior driving response. There is no abnormality during the photic stimulation. Hyperventilation is not performed. CLINICAL INTERPRETATION: This is a normal routine EEG. There is no focal slowing, epileptiform discharges, or seizure on the EEG. A normal routine EEG does not rule out underlying epilepsy. Clinical correlation is recommended. OSVALDO / CHANNING: [id number] /
[2024-04-18 10:44] LABS: BUN/Creat Ratio 10.41 Ratio (12.00-20.00); Blood Urea Nitrogen 28.1 mg/dL (9.0-27.0); Calcium 8.8 mg/dL (8.7-10.3); Carbon Dioxide 20.3 mmol/L (21.6-31.8); Chloride 108 mmol/L (96-109); Glucose 92 mg/dL (70-110); Potassium 4.4 mmol/L (3.5-5.5); Sodium 139 mmol/L (135-145)
[2024-04-18 10:49] LABS: Basophils # (A) 0.07 X 10*3/uL (0.00-0.10); Basophils % (A) 1.4 %; Eosinophils # (A) 0.26 X 10*3/uL (0.04-0.35); Eosinophils % (A) 5.3 %; HCT 30.3 % (39.6-50.0); Lymphocytes # (A) 0.64 X 10*3/uL (0.90-5.00); MCH 31.4 pg (27.0-32.0); MCV 95.3 FL (80.0-97.0); Mean Platelet Volume 9.6 FL (9.5-12.2); Monocytes # (A) 0.46 X 10*3/uL (0.20-1.00); Monocytes % (A) 9.3 %; NRBC Per 100 WBC 0 X 10*3/uL (0.00-0.01); Neutrophils # (A) 3.48 X 10*3/uL (1.80-7.70); Neutrophils % (A) 70.4 %; Platelet Count 157 X 10*3/uL (140-440); RBC 3.18 X 10*6/uL (4.40-5.60); RDW 12.1 % (11.5-14.5); WBC 4.94 X 10*3/uL (4.50-10.00)
[2024-04-18 13:44] VITALS: BP 157/72; PULSE 55; RESP 18; TEMP 98.2
--- NOTE | 2024-04-18 15:02 | P.PN ---
Subjective Progress Note Date: 04/18/24 I am following-up with patient and he feels he is doing well and no new neurological issues. Per the it seems to the patient has episode of underlying confusion going on at home for the past few months. Objective - Vital Signs Vital signs: Vital Signs Temp 98.2 F 04/18/24 13:30 Pulse 55 L 04/18/24 13:30 Resp 18 04/18/24 13:30 BP 157/72 04/18/24 13:30 Pulse Ox 99 04/18/24 13:30 FiO2 Intake & Output 04/17/24 04/18/24 04/18/24 18:59 06:59 18:59 Intake Total 598 500 Output Total 250 Balance 598 -250 500 Intake: Oral 598 500 Output: Urine 250 Other: # Voids 2 0 3 # Bowel Movements 0 - Exam General: Sitting up in bed and is not in acute distress. Neuro: Patient is awake alert oriented to self place and time. Is following simple commands. No aphasia. No facial weakness. No dysarthria Motor: Strength Is 5 out of 5. Some of the workup during this hospital visit consisted of: Patient is afebrile. White blood cell is within normal limits Ammonia level is less than 9. Vitamin B12 is 329 TSH is 4.120 Urine drug screen is not detected. Serum alcohol is less than 10. CT of the head is reported as no acute intracranial process. I personally reviewed the CT and agree with the report. Carotid duplex is reported as scattered atherosclerosis without sonographic evidence of hemodynamically significant carotid vascular stenosis. Routine EEG: Normal. - Labs CBC & Chem 7: 04/18/24 05:56 04/18/24 05:56 Labs: Abnormal Lab Results - Last 24 Hours (Table) 04/18/24 04/18/24 Range/Units 05:56 05:56 RBC 3.18 L (4.40-5.60) X 10*6/uL Hgb 10.0 L (13.0-17.0) g/dL Hct 30.3 L (39.6-50.0) % Lymphocytes # 0.64 L (0.90-5.00) X 10*3/uL Carbon Dioxide 20.3 L (21.6-31.8) mmol/L BUN 28.1 H (9.0-27.0) mg/dL Creatinine 2.7 H (0.6-1.5) mg/dL Est GFR (CKD-EPI) 23 L (>=60) BUN/Creatinine Ratio 10.41 L (12.00-20.00) Ratio Assessment and Plan Assessment: This is an 83-year-old gentleman who present emergency department because of headache, dizziness and presyncopal episode. Per the ED note it seems the patient has been having confusion for the past 12 hours and he had a fall this past Tuesday on and the patient denies any loss of consciousness or passing out is does not know how he fell. He denies any head trauma. Also as noted by the ED physician the patient has generalized shaking. On examination he was anxious. Episode of headache, anxious, whole body shaking, dizziness, presyncope and fall this past Tuesday: One of differential is seizure also rule out stroke/TIA-is back to baseline. Has normal routine EEG. Possibly underlying cognitive impairment/early onset dementia History of atrial fibrillation on eliqius Chronic kidney insufficiency Hypertension Very hard of hearing Plan: MRI of the brain, MRA head is pending. Recommend neuropsych evaluation for his memory as an outpatient. Defer the rest of the medical management to primary and other specialist. On discharge recommend the patient to follow-up with a neurologist as an outpatient within 2 to 3 weeks. The plan is discussed with patient and his who is at bedside as well as his nurse. Time with Patient: Less than 30
--- NOTE | 2024-04-18 18:05 | MR ---
EXAMINATION TYPE: MR brain wo con DATE OF EXAM: 04/18/2024 5:17 PM COMPARISON: NONE HISTORY: severe headache, confusion, r/o aneurysm. FINDINGS: The ventricles, basal cisterns and sulci overlying the cerebral convexities are mildly enlarged. There is evidence of at least moderate confluent periventricular white matter ischemic demyelination. Binswanger's disease not excluded. Remote deep white matter insults are also noted. No acute edema is seen on diffusion weighted imaging. There is no evidence for midline shift or mass effect. Acute intracranial hemorrhage or extra-axial collection is not evident. The paranasal sinuses and mastoid air cells are well-aerated. IMPRESSION: Age-related atrophic and chronic small vessel ischemic change. No acute intracranial process at this time. Correlate for Binswanger's disease [facility], , 04/18/2024 6:03 PM
--- NOTE | 2024-04-18 18:07 | MR ---
EXAMINATION TYPE: MR angio head wo con DATE OF EXAM: 04/18/2024 5:06 PM COMPARISON: NONE HISTORY: severe headache, confusion, r/o aneurysm. Three-dimensional [id number] intracranial MRA was performed with multiple intensity projection im ages submitted and source data reviewed at the workstation. The vertebrobasilar system as well as intracranial portions of the internal carotid arteries and thei r major tributaries are patent. I do not see evidence for sizable aneurysm or vascular malformation. IMPRESSION: No discrete abnormality seen. [facility], , 04/18/2024 6:04 PM
--- NOTE | 2024-04-18 19:28 | P.HPIM ---
History of Present Illness H&P Date: 04/17/24 Chief Complaint: Change in mental status, recent fall This is an 83-year-old male with past medical history of atrial fibrillation on Eliquis, hypertension, hyperlipidemia, chronic kidney disease, former nicotine dependence, dementia and multiple other medical issues brought to the ER via EMS with complaints of altered mental status, increased confusion, recent fall on Tuesday- reports near syncope and multiple other medical issues. questioning, possibly advancing dementia over the last couple months. This morning patient is up to the bathroom, near baseline. Denies any chest pain, palpitations or shortness of breath. Denies any lightheadedness, dizziness or focal deficits. Afebrile,Normal WBC. Hemoglobin 9.8, platelets 164, bicarb 21.3, BUN 27.9, creatinine 2.6. Serum alcohol less than 10, viral studies negative. UA negative. Ammonia less than 9, vitamin B12 329, TSH 4.12. Blood sugars controlled. Brain CT, chest x-ray reported nonacute. Evaluated by neurology with neuro workup in progress. Carotid Doppler reported no hemodyna maryellen significant stenosis. EEG, brain MRI, head MRA pending. Review of Systems ROS Statement: Those systems with pertinent positive or pertinent negative responses have been documented in the HPI. ROS Other: All systems not noted in ROS Statement are negative. Past Medical History Past Medical History: Atrial Fibrillation, Hyperlipidemia, Hypertension, Osteoarthritis (OA), Prostate Disorder, Renal Disease, Skin Disorder Additional Past Medical History / Comment(s): BPH. PSORIASIS. History of Any Multi-Drug Resistant Organisms: None Reported Past Surgical History: Orthopedic Surgery Additional Past Surgical History / Comment(s): COLONOSCOPY. RT BELEN. Arthroscopy left Knee, RT TKA 11/09/21, RIGHT HIP REPLACED Past Anesthesia/Blood Transfusion Reactions: No Reported Reaction Past Psychological History: No Psychological Hx Reported Smoking Status: Former smoker Past Alcohol Use History: None Reported Past Drug Use History: None Reported - Past Family History Mother Daughter(s) Family Medical History: Cancer Additional Family Medical History / Comment(s): ovarian cancer-mother,dtr-breast CA Father Family Medical History: Cancer Mother Family Medical History: Cancer Medications and Allergies Home Medications Medication Instructions Recorded Confirmed Type Simvastatin [Zocor] 40 mg PO HS 03/26/16 04/16/24 History Tamsulosin [Flomax] 0.4 mg PO HS 01/19/21 04/16/24 History Apixaban [Eliquis] 2.5 mg PO BID 05/05/21 04/16/24 History Ferrous Sulfate [Iron (65 MG 325 mg PO DAILY 08/24/23 04/16/24 History Elemental)] Sildenafil Citrate [Viagra] 100 mg PO Q72H PRN 08/24/23 04/16/24 History calcitrioL 0.25 mcg PO MOFR 08/24/23 04/16/24 History carvediloL [Coreg] 6.25 mg PO BID 08/24/23 04/16/24 History Famotidine [Pepcid] 20 mg PO DAILY #30 tab 09/08/23 04/16/24 Rx hydrALAZINE HCL [Apresoline] 25 mg PO TID 04/16/24 04/16/24 History hydrALAZINE HCL [Apresoline] 50 mg PO TID 04/16/24 04/16/24 History Donepezil [Aricept] 5 mg PO HS #30 tablet 04/18/24 Rx Allergies Allergy/AdvReac Type Severity Reaction Status Date / Time No Known Allergies Allergy Verified 04/16/24 13:41 Physical Exam Vitals: Vital Signs Temp Pulse Pulse Resp BP BP BP 04/17/24 15:00 98.4 F 58 L 16 173/69 04/17/24 07:00 98.2 F 70 16 181/90 04/17/24 01:58 97.8 F 82 17 174/92 04/16/24 21:25 97.5 F L 67 17 166/77 04/16/24 21:06 68 16 160/80 04/16/24 19:40 98.4 F 65 14 160/80 04/16/24 18:00 75 16 151/88 04/16/24 17:00 73 16 156/79 Pulse Ox 04/17/24 15:00 99 04/17/24 07:00 98 04/17/24 01:58 97 04/16/24 21:25 98 04/16/24 21:06 97 04/16/24 19:40 98 04/16/24 18:00 98 04/16/24 17:00 98 Intake and Output 04/17/24 04/17/24 04/17/24 06:59 14:59 22:59 Intake Total 118 240 Output Total 300 Balance -300 118 240 Intake: Oral 118 240 Output: Urine 300 Other: # Voids 2 Physical examination: VS: Reviewed GENERAL: This is an 83-year-old male,[place], alert and oriented x 3, standing up, showering in no acute distress HEENT: Head is atraumatic, normocephalic. Pupils equal, round. Sclerae is anicteric. NECK: Supple. No JVD. LUNGS: Unlabored, equal air entry, clear to auscultation. No wheezes or rhonchi. No intercostal retractions. HEART: Regular rate and rhythm. No murmur. ABDOMEN: Soft, nondistended, no tenderness. Positive bowel sound. EXTREMITIES: No pedal edema. No calf tenderness. NEUROLOGICAL: Cranial nerves II through XII grossly intact. Performing his own ADLs efficiently. Results CBC & Chem 7: 04/18/24 05:56 04/18/24 05:56 Labs: Abnormal Lab Results - Last 24 Hours (Table) 04/17/24 04/17/24 Range/Units 04:34 04:34 RBC 3.08 L (4.40-5.60) X 10*6/uL Hgb 9.8 L (13.0-17.0) g/dL Hct 29.0 L (39.6-50.0) % Lymphocytes # 0.84 L (0.90-5.00) X 10*3/uL Chloride 110 H (96-109) mmol/L Carbon Dioxide 21.3 L (21.6-31.8) mmol/L BUN 27.9 H (9.0-27.0) mg/dL Creatinine 2.6 H (0.6-1.5) mg/dL Est GFR (CKD-EPI) 24 L (>=60) BUN/Creatinine Ratio 10.73 L (12.00-20.00) Ratio Calcium 8.4 L (8.7-10.3) mg/dL Assessment and Plan Assessment: Change in mental status status post recent fall with near syncope, with suspected dementia, ruling out TIA, CVA, seizures, neurology following, Chronic paroxysmal atrial fibrillation, anticoagulated with Eliquis Hypertension Hyperlipidemia Chronic kidney disease stage IV Remote history of tobacco use BPH, maintained on Flomax Plan: Continue on current medication resume ,monitoring and symptomatic treatment. Neurology workup in progress. Discharge planning in progress pending completion of neurology workup and DC clearance per neurology. Family at bedside. Questions and concerns addressed. Support given. The impression and plan of care has been dictated as directed. : I performed a history and examination of this patient, discussed the same with the dictator. I agree with the dictator's note ,documented as a scribe. Any additional findings or plans will be noted.
--- NOTE | 2024-04-18 19:29 | P.DS ---
Providers Date of admission: 04/16/24 13:25 Expected date of discharge: 04/19/24 Attending physician: Hari Fajardo Consults: 04/16/24 13:24 Consult Physician Routine Consulting Provider: Frantz Chow Consult Reason/Comments: progressively worsening confusion Do you want consulting provider notified?: Yes Primary care physician: Hari Fajardo [place] [facility] Course: Final Diagnoses: Change in mental status status post recent fall with near syncope, with suspected dementia, ruling out TIA, CVA, seizures, neurology following, normal routine EEG. Aricept initiated at discharge. Chronic paroxysmal atrial fibrillation, anticoagulated with Eliquis Hypertension Hyperlipidemia Chronic kidney disease stage IV Remote history of tobacco use BPH, maintained on Flomax Hospital course: This is an 83-year-old male with past medical history of atrial fibrillation on Eliquis, hypertension, hyperlipidemia, chronic kidney disease, former nicotine dependence, dementia and multiple other medical issues brought to the ER via EMS with complaints of altered mental status, increased confusion, recent fall on Tuesday- reports near syncope and multiple other medical issues. questioning, possibly advancing dementia over the last couple months. This morning patient is up to the bathroom, near baseline. Denies any chest pain, palpitations or shortness of breath. Denies any lightheadedness, dizziness or focal deficits. Afebrile,Normal WBC. Hemoglobin 9.8, platelets 164, bicarb 21.3, BUN 27.9, creatinine 2.6. Serum alcohol less than 10, viral studies negative. UA negative. Ammonia less than 9, vitamin B12 329, TSH 4.12. Blood sugars controlled. Brain CT, chest x-ray reported nonacute. Evaluated by neurology with neuro workup in progress. Carotid Doppler reported no hemodynamic significant stenosis. EEG, brain MRI, head MRA pending. Significant clinical improvement. Denies any new symptoms, reports no new complaints. EEG reported normal. patient continues to do well, walking, tolerating exertion well. Motor strength 5 out of 5. denies chest pain, palpitations or shortness of breath. Denies lightheadedness, dizziness or focal deficits. Vital signs stable, afebrile, normal WBC. Patient will be discharged home today, in a stable condition with guarded prognosis, pending brain MRI, MRA of head, final DC recommendations and clearance per neurology. PCP suspects underlying dementia with Aricept initiated at discharge. Further cognitive evaluation outpatient. The impression and plan of care has been dictated as directed. : I performed a history and examination of this patient, discussed the same with the dictator. I agree with the dictator's note ,documented as a scribe. Any additional findings or plans will be noted. Patient Condition at Discharge: Stable Plan - Discharge Summary New Discharge Prescriptions: New Donepezil [Aricept] 5 mg PO HS #30 tablet No Action Simvastatin [Zocor] 40 mg PO HS Ferrous Sulfate [Iron (65 MG Elemental)] 325 mg PO DAILY calcitrioL 0.25 mcg PO MOFR hydrALAZINE HCL [Apresoline] 50 mg PO TID Tamsulosin [Flomax] 0.4 mg PO HS Apixaban [Eliquis] 2.5 mg PO BID carvediloL [Coreg] 6.25 mg PO BID Sildenafil Citrate [Viagra] 100 mg PO Q72H PRN PRN Reason: MALE ED Famotidine [Pepcid] 20 mg PO DAILY #30 tab hydrALAZINE HCL [Apresoline] 25 mg PO TID Discharge Medication List Simvastatin [Zocor] 40 mg PO HS 03/26/16 [History] Tamsulosin [Flomax] 0.4 mg PO HS 01/19/21 [History] Apixaban [Eliquis] 2.5 mg PO BID 05/05/21 [History] Ferrous Sulfate [Iron (65 MG Elemental)] 325 mg PO DAILY 08/24/23 [History] Sildenafil Citrate [Viagra] 100 mg PO Q72H PRN 08/24/23 [History] calcitrioL 0.25 mcg PO MOFR 08/24/23 [History] carvediloL [Coreg] 6.25 mg PO BID 08/24/23 [History] Famotidine [Pepcid] 20 mg PO DAILY #30 tab 09/08/23 [Rx] hydrALAZINE HCL [Apresoline] 25 mg PO TID 04/16/24 [History] hydrALAZINE HCL [Apresoline] 50 mg PO TID 04/16/24 [History] Donepezil [Aricept] 5 mg PO HS #30 tablet 04/18/24 [Rx] Follow up Appointment(s)/Referral(s): Hari Fajardo DO [Primary Care Provider] - 3 Days Herson La DO [STAFF PHYSICIAN] - 2 Weeks Patient Instructions/Handouts: Altered Mental Status (ED) Discharge Disposition: HOME SELF-CARE
== END 2024-04-18 19:11 | disposition home or self-care (01) ==
LOC: EC 11:29 → 6NMEDSUR 13:25
PROVIDERS: ADMIT Family Medicine; ATTEND Family Medicine
DX: R41.82 Altered mental status, unspecified (principal); R51.9 Headache, unspecified; R55 Syncope and collapse; I48.0 Paroxysmal atrial fibrillation; E78.5 Hyperlipidemia, unspecified; F03.90 Unspecified dementia, unspecified severity, without behavioral disturbance, psychotic disturbance, mood disturbance, and anxiety; I12.9 Hypertensive chronic kidney disease with stage 1 through stage 4 chronic kidney disease, or unspecified chronic kidney disease; N18.4 Chronic kidney disease, stage 4 (severe); N40.0 Benign prostatic hyperplasia without lower urinary tract symptoms; Z79.01 Long term (current) use of anticoagulants; Z87.891 Personal history of nicotine dependence; Z79.899 Other long term (current) drug therapy
CPT/HCPCS: 96360; 96374; 99291; 36415; 95816; 93005; 80053; 80048 ×2; 84443; 82607; 82140; 85025 ×3; 85610; 85730; 81003; 80306; 87636; 71046; 93880; 70450; 70544; 70551; G0378 ×3; G0480; J2060; 80320